=== PATIENT | female | born 1995 | race African-American/Black ===

== ENCOUNTER 2018-12-07 14:23 | Inpatient (IN) ==
[2018-12-07] MEDS ORDERED: LACTATED RINGER'S 1,000 ML IV PRN ×3 (14:49→23:38)
[2018-12-07] MEDS ORDERED: miSOPROStol 50 MCG TAB PO ONE (14:49)
[2018-12-07] MEDS ORDERED: OXYTOCIN 30 UNITS/500 ML BAG IV PRN ×2 (14:49→23:00)
--- NOTE | 2018-12-07 14:52 | History & Physical Report ---
Date of Service December 07, 2018 40 weeks and 0 days patient noted leakage of fluid starting early this morning just after midnight she has minimal contraction activity at this time minimal pain she has no bleeding states her baby is active has been uncomplicated. Group B strep negative Assessment & Plan (1) PROM (premature rupture of membranes): PROM at term group B strep negative admit discussed augmentation induction of labor offered Cytotec discussed the role of Pitocin patient prefers Cytotec at this time History of Present Illness Primary Care Provider: NO PCP Physical Exam 2 Vital Signs (Past 24 Hours): Last Vital Signs Temp 36.4 C L 12/07/18 14:31 Pulse 78 12/07/18 14:31 Resp 20 12/07/18 14:31 BP 123/90 12/07/18 14:31 Physical Exam: Patient appears in no distress Chest clear Cardiovascular no murmur regular rate and rhythm Abdominal exam gravid Sterile speculum exam reveals no pooling nitrazine negative however ferning is positive and and amnisure positive cervix is long thick and closed
[2018-12-07 15:21] LABS: Hematocrit (blood only) 35.1 % (37-47); Hemoglobin 11.2 g/dL (12.0-16.0); Mean Corpuscular Hgb Conc 31.9 g/dL (32-36); Mean Corpuscular Volume 78.3 fL (80-100); RDW Coefficient of Variation 14.1 % (11.5-14.5); RDW Standard Deviation 39.8 fL (36.4-46.3); Red Blood Count 4.48 M/uL (4.2-5.4); White Blood Count 9.14 K/uL (4.8-10.8)
[2018-12-07 15:30] LABS: Mean Platelet Volume 12.4 fL (7.4-10.4); Platelet Count 129 K/uL (130-400)
--- NOTE | 2018-12-07 21:12 | Obstetrical Progress Note ---
Date of Service December 07, 2018 Responding to cytotec. CTX Q2-3'. More painful (02/27) Cat 1. A+P: Will not repeat cytotec dose, may need pitocin. Physical Exam 2 Vital Signs (Past 24 Hours): Last Vital Signs Temp 36.8 C 12/07/18 21:00 Pulse 64 12/07/18 18:57 Resp 20 12/07/18 21:00 BP 124/89 12/07/18 18:57
[2018-12-07] MEDS: LACTATED RINGER'S 1,000 ML IV SCH (23:07)
[2018-12-07] MEDS ORDERED: BUPIVACAINE 0.25% 30 ML VIAL ONE (23:27)
[2018-12-07] MEDS ORDERED: ePHEDrine sulfate 50 MG/ML AMP ONE (23:28)
[2018-12-07] MEDS ORDERED: fentaNYL citrate 100 MCG/2 ML VIAL ONE (23:28)
[2018-12-07] MEDS ORDERED: fentaNYL 2MCG/ML ROPIV 1.25MG/ML 100 ML BAG EPI ONE (23:29)
[2018-12-07] MEDS ORDERED: fentaNYL 2MCG/ML ROPIV 1.25MG/ML 100 ML BAG EPI PRN (23:38)
[2018-12-07] MEDS ORDERED: ePHEDrine sulfate 50 MG/ML AMP IV PRN (23:38)
[2018-12-07] MEDS ORDERED: DiphenhydrAMINE HCL 50 MG/ML VIAL IV PRN (23:38)
[2018-12-07] MEDS ORDERED: NALOXONE HCL 0.4 MG/1 ML VIAL/CARP IV PRN (23:38)
[2018-12-07] MEDS ORDERED: NALBUPHINE HCL INJ 10 MG/ML AMP IV PRN (23:38)
[2018-12-07] MEDS ORDERED: NALOXONE HCL 1 MG in SODIUM CHLORIDE 0.9% 1000ML 1,000 ML IV PRN (23:38)
--- NOTE | 2018-12-07 23:40 | Anesthesiology Consultation ---
Date of Service December 07, 2018 Assessment & Plan (1) Encounter for pre-operative examination: Chart Review Chart Review: Patient NOT seen in Pre Admission Testing and Acceptable Risk for Labor Epidural Consults Requested none History Height/Weight Height: 5 ft 5 in Weight: 72.121 kg Allergies Allergy/AdvReac Type Severity Reaction Status Date / Time No Known Allergies Allergy Verified 12/07/18 16:06 Medications Home Medications Medication Instructions Recorded Confirmed Last Taken vit-iron fum-folic ac 1 tab PO DAILY 12/07/18 12/07/18 12/06/18 20:00 [ Vitamin] Active Medications Generic Name Dose Route Start Last Admin Trade Name Freq PRN Reason Stop Dose Admin Lactated Ringer's 1,000 mls @ 125 mls/hr 12/07/18 15:00 12/07/18 23:07 Lr IV 12/09/18 14:59 999 mls/hr .Q8H [facility]US[facility]OO Administration Past Medical History Medical History No known health problems Past Family History Family History Other No history of previous surgery No known health problems Past Anesthesia History No Hx of Anesthesia Complications and No Family Hx of Anesthesia Complications History of PONV No Motion Sickness Screening History of Motion Sickness: No Social History Smoking Status: Never smoker Hx Alcohol Use: No Hx Substance Use: No substance use type: does not use Exercise / Class Metabolic Activity II 4-5 Yardwork/Stairs/Walk up hill Physical Exam Vital Signs Last Vital Signs Temp 37.1 C 12/07/18 23:00 Pulse 69 12/07/18 23:32 Resp 20 12/07/18 23:00 BP 108/74 12/07/18 23:09 Pulse Ox 100 12/07/18 23:32 Testing Laboratory Results 12/07/18 15:01
[2018-12-08] MEDS: LACTATED RINGER'S 1,000 ML IV SCH ×3 (00:08→12:53)
--- NOTE | 2018-12-08 06:24 | Obstetrical Progress Note ---
Date of Service December 08, 2018 Patient has now progressed to 4 cm 90% -2 small for bag of esteves ruptured spontaneously on exam Pitocin is running and has been running for most of the evening occasional variable decelerations otherwise good accelerations good variability in the heart rate Physical Exam 2 Vital Signs (Past 24 Hours): Last Vital Signs Temp 37.2 C 12/08/18 05:00 Pulse 79 12/08/18 06:17 Resp 18 12/08/18 05:00 BP 114/80 12/08/18 06:10 Pulse Ox 100 12/08/18 06:17
--- NOTE | 2018-12-08 06:52 | Obstetrical Progress Note ---
Date of Service December 08, 2018 After membranes ruptured on exam patient did have a prolonged D cell. We did stop the Pitocin and heart rate improved in semi-batista's position scalp clip was placed patient almost stretches to 5 cm -1 station We will have to follow closely as she is on oxygen and Pitocin stopped and consider restarting Pitocin heart rate tracing stays stable Physical Exam 2 Vital Signs (Past 24 Hours): Last Vital Signs Temp 37.2 C 12/08/18 05:00 Pulse 77 12/08/18 06:47 Resp 18 12/08/18 05:00 BP 124/58 L 12/08/18 06:41 Pulse Ox 100 12/08/18 06:47
--- NOTE | 2018-12-08 07:50 | Obstetrical Progress Note ---
Date of Service December 08, 2018 Assessment & Plan (1) PROM (premature rupture of membranes): Pitocin off for 30 minutes. Tracing category 2 with good variability and accelerations. Occasional decelerations with contraction. Contractions every 7 -9 minutes. We will reinitiate Pitocin to augment labor. Continue external monitoring. Subjective Change of shift note: The patient is a 23-year-old 1 para 0 admitted with presumed rupture of membranes. Patient initially induced with Cytotec, became uncomfortable, an epidural was placed. Pitocin was then initiated. Patient had a prolonged deceleration causing the Pitocin to be discontinued. Intrauterine pressure catheter was then placed. Change of shift with new provider assuming care at this point. Physical Exam 2 Vital Signs (Past 24 Hours): Last Vital Signs Temp 37.1 C 12/08/18 07:15 Pulse 69 12/08/18 07:42 Resp 20 12/08/18 07:15 BP 109/76 12/08/18 07:26 Pulse Ox 100 12/08/18 07:42
--- NOTE | 2018-12-08 12:43 | Obstetrical Progress Note ---
Date of Service December 08, 2018 Assessment & Plan (1) PROM (premature rupture of membranes): Patient continues on Pitocin with adequate labor for the last 4 hours. No cervical change and repetitive decelerations with decreased variability with contractions. Overall the tracing is still category 2 but at times approaches category 3. With no cervical change despite the adequate contractions, we are remote from delivery. Do not feel that the fetus will tolerate long-term continued Pitocin and recommend proceeding with primary section for intolerance to labor. All questions answered of the patient in the FOB. The risks, benefits, and alternatives to the section have been discussed. While the benefits are delivery of the infant, the risks of bleeding , infection, inadvertent injury to bowel or bladder, readmission, or rehospitalization. All questions answered of the patient. The permit has been signed, and she wishes to proceed. Physical Exam 2 Vital Signs (Past 24 Hours): Last Vital Signs Temp 37.0 C 12/08/18 10:55 Pulse 71 12/08/18 12:37 Resp 20 12/08/18 11:25 BP 120/74 12/08/18 12:25 Pulse Ox 100 12/08/18 12:37 Genitourinary: Manual OB Exam: + cervical dilation 4 cm, + cervical effacement 70% and + station -2 OB Exam Monitor Tracing: + external FHT monitor used, + category II and + category III
[2018-12-08] MEDS ORDERED: LIDOCAINE/EPINEPHRINE 2% 1:200,000 20 ML SDV ONE (12:44)
[2018-12-08] MEDS ORDERED: CEFAZOLIN 2000MG 2,000 MG/15 ML SYR IV STA (12:44)
[2018-12-08] MEDS ORDERED: OXYTOCIN 10 UNITS/ML VIAL ONE (12:44)
[2018-12-08] MEDS ORDERED: LACTATED RINGER'S 1,000 ML IV SCH ×3 (12:45→14:22)
[2018-12-08] MEDS ORDERED: CITRIC ACID/SODIUM CITRATE 15 ML UDC ONE (12:48)
[2018-12-08] MEDS ORDERED: MoRPHine SULFATE PF 1 MG/ML 10 ML AMP/VIAL ONE (13:16)
[2018-12-08] MEDS ORDERED: MoRPHine SULFATE PF 1 MG/ML 10 ML AMP/VIAL INT SPINAL ONE (13:37)
[2018-12-08] MEDS ORDERED: LACTATED RINGER'S 500 ML IV PRN (13:37)
[2018-12-08] MEDS ORDERED: NALOXONE HCL 1 MG in SODIUM CHLORIDE 0.9% 1000ML 1,000 ML IV PRN (13:37)
[2018-12-08] MEDS ORDERED: DiphenhydrAMINE HCL 50 MG/ML VIAL IV PRN (13:37)
[2018-12-08] MEDS ORDERED: NALOXONE HCL 0.08 MG in SYRINGE 1.8 ML IV PRN (13:37)
[2018-12-08] MEDS ORDERED: NALOXONE HCL 0.4 MG/1 ML VIAL/CARP IV PRN (13:37)
[2018-12-08] MEDS ORDERED: ONDANSETRON INJ 2 MG/ML 2 ML VIAL IV PRN (13:37)
[2018-12-08] MEDS ORDERED: ePHEDrine sulfate 50 MG/ML AMP IV PRN (13:37)
[2018-12-08] MEDS ORDERED: MEPERIDINE HCL 25 MG/ML CARP IV PRN (13:37)
[2018-12-08] MEDS ORDERED: NALBUPHINE HCL INJ 10 MG/ML AMP IV PRN (13:37)
[2018-12-08] MEDS ORDERED: ONDANSETRON INJ 2 MG/ML 2 ML VIAL ONE (13:38)
[2018-12-08] MEDS ORDERED: SODIUM CHLORIDE 0.9% 1000ML 1,000 ML IV SCH (13:45)
[2018-12-08] MEDS ORDERED: NO NARCOTICS OR SEDATIVES SCH (13:45)
[2018-12-08] MEDS ORDERED: DC INTRASPINAL MORPHINE SCH (13:45)
--- NOTE | 2018-12-08 13:55 | Post Operative Brief Note ---
Immediate Post Op Note v1 Date of Surgery December 08, 2018 Pre & Post Diagnosis Operation Date: 12/08/18 13:00 Pre-Op Diagnosis: 1. intolerance to labor. Post-Op Diagnosis: Same Procedure Operation Date: 12/08/18 13:00 <No data on this case meets the specified criteria> Surgeon Donte Thomas Jr, MD, FACOG Metal Control Coordinator Nursing Estimated Blood Loss 800 Findings See Below (Viable male, APgars 9/9; weight 7lbs 6ozs, gasses pending, normal appearing tubes and ovaries bilaterally)
[2018-12-08 14:21] LABS: Base Excess Cord Venous Blood -0.5 mEq/L (-7.7-1.9); Cord Venous Blood HCO3 25 mmol/L (18.4-26.8); Cord Venous Blood PCO2 45 mmHg (30.4-57.2); Cord Venous Blood PO2 32 mmHg (14.1-43.3); Cord Venous Blood pH 7.37 (7.20-7.44); O2 Saturation Cord Venous Bld 73.2 % (<68)
[2018-12-08] MEDS ORDERED: DIPHTHERIA/TETANUS/PERTUSSIS 0.5 ML SYR/VIAL IM ONE (14:22)
[2018-12-08] MEDS ORDERED: SUPERCREAM 0.870% 15 GM JAR EXT PRN (14:22)
[2018-12-08] MEDS ORDERED: HYDROCORTISONE ACETATE 25 MG SUPP PR PRN (14:22)
[2018-12-08] MEDS ORDERED: BENZOCAINE 20% AER SPR 82.5 GM CAN EXT PRN (14:22)
[2018-12-08 14:24] LABS: Base Excess Cord Arterial Bld -0.3 mEq/L (-9-1.8); CO2 Cord Arterial Blood 59 mmHg (39.1-73.5); HCO3 Cord Arterial Blood 28 mmol/L (19.7-28.5); PO2 Cord Arterial Blood 20.2 % (4.1-31.7); pH Cord Arterial Blood 7.29 (7.1-7.38)
[2018-12-08] MEDS: KETOROLAC 30 MG/ML VIAL IV PRN (14:33)
[2018-12-08] MEDS ORDERED: CARBOPROST TROMETHAMINE 250 MCG/ML AMPUL IM ONE (15:10)
--- NOTE | 2018-12-08 15:27 | Anesthesiology Progress Note ---
Date of Service December 08, 2018 Anesthesia Post Procedure Vital Signs Vital Signs: Temp Pulse Resp BP Pulse Ox 12/08/18 15:23 78 137/64 12/08/18 15:21 75 99 12/08/18 15:16 74 100 12/08/18 15:14 74 92 12/08/18 15:13 83 136/88 12/08/18 15:11 77 99 12/08/18 15:06 72 100 12/08/18 15:03 77 134/86 12/08/18 15:01 74 100 12/08/18 14:56 76 100 12/08/18 14:53 76 132/88 12/08/18 14:51 74 18 100 12/08/18 14:50 79 93 12/08/18 14:46 74 99 12/08/18 14:43 69 130/84 12/08/18 14:41 76 97 12/08/18 14:36 72 140/75 98 12/08/18 14:31 84 100 12/08/18 14:26 79 100 12/08/18 14:23 81 128/83 12/08/18 14:21 75 18 100 12/08/18 14:16 80 124/77 100 12/08/18 14:11 86 97 12/08/18 14:06 87 100 12/08/18 14:01 91 H 122/90 99 12/08/18 13:03 85 126/91 12/08/18 13:02 93 H 99 12/08/18 12:57 90 99 12/08/18 12:55 88 131/92 12/08/18 12:52 80 100 12/08/18 12:47 81 100 12/08/18 12:42 86 99 12/08/18 12:41 70 128/84 12/08/18 12:37 71 100 12/08/18 12:32 76 97 12/08/18 12:27 73 100 12/08/18 12:25 74 120/74 12/08/18 12:22 60 100 12/08/18 12:17 61 100 12/08/18 12:12 68 124/69 100 12/08/18 12:07 72 98 12/08/18 12:02 74 100 12/08/18 11:57 63 99 12/08/18 11:56 76 105/69 12/08/18 11:52 71 100 12/08/18 11:47 74 98 12/08/18 11:42 77 99 12/08/18 11:41 75 113/80 12/08/18 11:37 73 99 12/08/18 11:32 70 99 12/08/18 11:27 80 99 12/08/18 11:26 81 102/58 L 12/08/18 11:25 20 12/08/18 11:22 71 99 12/08/18 11:17 88 99 12/08/18 11:12 71 118/77 100 12/08/18 11:07 76 99 12/08/18 11:02 92 H 98 12/08/18 11:01 73 90 12/08/18 10:57 70 99 12/08/18 10:56 62 141/78 H 12/08/18 10:55 98.6 F 68 20 94 12/08/18 10:52 62 100 12/08/18 10:47 59 L 99 12/08/18 10:43 59 L 130/84 12/08/18 10:42 64 18 99 12/08/18 10:37 59 L 99 12/08/18 10:32 59 L 99 12/08/18 10:27 83 100 12/08/18 10:25 69 109/76 12/08/18 10:22 67 99 12/08/18 10:17 83 97 12/08/18 10:12 66 99 12/08/18 10:10 64 108/69 12/08/18 10:09 20 12/08/18 10:07 63 100 12/08/18 10:02 67 100 12/08/18 09:57 63 100 12/08/18 09:56 60 110/70 12/08/18 09:52 61 100 12/08/18 09:47 59 L 100 19 09:42 57 L 100 19 09:41 56 L 129/89 18 09:37 54 L 100 12/08/18 09:32 62 100 18/19 09:27 62 99 12/08/18 09:25 60 115/79 18/ 09:22 62 100 12/08/18 09:17 64 100 12/08/18 09:12 58 L 100 12/08/18 09:10 57 L 116/80 12/08/18 09:09 97.7 F 18 12/08/18 09:07 68 100 12/08/18 09:02 67 100 12/08/18 08:57 60 99 12/08/18 08:56 67 121/84 12/08/18 08:52 73 100 12/08/18 08:47 58 L 100 12/08/18 08:42 58 L 100 12/08/18 08:41 20 12/08/18 08:37 60 100 12/08/18 08:32 61 100 12/08/18 08:27 63 100 12/08/18 08:26 62 125/78 12/08/18 08:22 67 100 12/08/18 08:17 85 100 12/08/18 08:12 58 L 100 12/08/18 08:11 60 121/73 12/08/18 08:10 16 12/08/18 08:07 63 100 12/08/18 08:02 61 100 12/08/18 07:57 59 L 100 12/08/18 07:56 57 L 111/56 L 12/08/18 07:55 14 12/08/18 07:52 58 L 100 12/08/18 07:47 70 100 12/08/18 07:42 69 100 12/08/18 07:37 68 100 12/08/18 07:32 65 100 12/08/18 07:27 63 100 12/08/18 07:26 65 109/76 12/08/18 07:22 69 100 12/08/18 07:17 65 100 12/08/18 07:15 98.8 F 20 12/08/18 07:12 127/76 12/08/18 07:07 76 98 12/08/18 07:02 64 100 12/08/18 06:57 77 100 12/08/18 06:56 75 94/63 L 12/08/18 06:52 87 100 12/08/18 06:47 77 100 12/08/18 06:42 69 100 19 06:41 81 124/58 L 12/08/18 06:37 66 100 12/08/18 06:32 80 100 12/08/18 06:27 82 98 12/08/18 06:26 106 H 116/80 12/08/18 06:22 72 100 12/08/18 06:17 79 100 12/08/18 06:12 79 100 12/08/18 06:10 90 114/80 12/08/18 06:07 87 99 12/08/18 06:02 71 99 12/08/18 05:57 86 115/79 99 12/08/18 05:52 89 99 12/08/18 05:47 81 98 12/08/18 05:42 73 98 12/08/18 05:40 85 109/72 12/08/18 05:37 75 99 12/08/18 05:32 86 96 12/08/18 05:27 71 98 12/08/18 05:25 81 121/79 12/08/18 05:22 79 99 12/08/18 05:17 81 98 12/08/18 05:12 88 118/76 99 12/08/18 05:07 82 98 12/08/18 05:02 72 99 12/08/18 05:00 99.0 F 18 12/08/18 04:57 72 100 12/08/18 04:56 63 106/64 12/08/18 04:52 74 100 12/08/18 04:47 60 98 12/08/18 04:42 61 100 12/08/18 04:41 71 116/77 12/08/18 04:37 63 99 12/08/18 04:32 97 H 100 12/08/18 04:27 74 100 12/08/18 04:26 63 115/78 12/08/18 04:22 62 98 12/08/18 04:17 69 98 12/08/18 04:12 60 98 12/08/18 04:11 58 L 111/68 12/08/18 04:07 58 L 97 12/08/18 04:02 59 L 97 12/08/18 03:57 67 97 12/08/18 03:56 56 L 113/72 12/08/18 03:52 64 98 12/08/18 03:47 60 99 12/08/18 03:42 56 L 99 12/08/18 03:40 58 L 110/70 12/08/18 03:37 59 L 98 12/08/18 03:32 60 97 12/08/18 03:27 60 98 12/08/18 03:26 58 L 107/71 02/18/19 03:22 55 L 98 12/08/18 03:17 60 98 12/08/18 03:12 55 L 100 12/08/18 03:10 55 L 120/77 12/08/18 03:07 66 99 12/08/18 03:02 57 L 99 12/08/18 03:00 98.8 F 18 12/08/18 02:57 55 L 99 12/08/18 02:56 56 L 114/69 12/08/18 02:52 57 L 98 12/08/18 02:47 57 L 98 12/08/18 02:42 60 100 12/08/18 02:41 58 L 117/80 12/08/18 02:37 60 100 12/08/18 02:32 57 L 18 99 12/08/18 02:27 61 100 12/08/18 02:26 54 L 118/78 12/08/18 02:22 53 L 100 12/08/18 02:17 56 L 99 12/08/18 02:12 55 L 127/83 100 12/08/18 02:09 73 93 12/08/18 02:07 66 99 12/08/18 02:02 57 L 100 12/08/18 02:00 18 12/08/18 01:57 58 L 100 12/08/18 01:56 57 L 126/85 12/08/18 01:52 59 L 99 12/08/18 01:47 56 L 100 12/08/18 01:42 62 98 12/08/18 01:40 57 L 108/69 12/08/18 01:37 69 99 12/08/18 01:32 67 98 12/08/18 01:30 18 12/08/18 01:27 57 L 98 12/08/18 01:26 62 113/70 12/08/18 01:22 61 98 12/08/18 01:17 61 97 12/08/18 01:12 63 97 12/08/18 01:11 64 18 104/62 12/08/18 01:10 98.8 F 12/08/18 01:07 63 97 12/08/18 01:02 56 L 98 12/08/18 00:57 57 L 99 12/08/18 00:52 56 L 98 02/18/19 00:47 55 L 97 12/08/18 00:42 58 L 98 12/08/18 00:41 55 L 18 115/75 12/08/18 00:37 61 98 12/08/18 00:32 62 98 12/08/18 00:27 80 98 12/08/18 00:25 74 20 110/70 12/08/18 00:22 83 99 12/08/18 00:17 65 97 12/08/18 00:15 67 102/61 12/08/18 00:12 73 98 12/08/18 00:09 74 110/66 12/08/18 00:07 71 98 12/08/18 00:04 67 107/64 12/08/18 00:02 69 99 12/08/18 00:01 67 107/62 12/07/18 23:57 75 99 12/07/18 23:55 73 129/70 12/07/18 23:52 64 100 12/07/18 23:47 80 91 12/07/18 23:46 79 126/95 12/07/18 23:43 79 90 12/07/18 23:42 83 100 12/07/18 23:37 64 100 12/07/18 23:32 69 100 12/07/18 23:27 66 98 12/07/18 23:23 73 94 12/07/18 23:22 77 97 12/07/18 23:17 69 98 12/07/18 23:09 71 108/74 12/07/18 23:00 98.8 F 20 12/07/18 21:00 98.2 F 20 12/07/18 19:00 97.7 F 20 12/07/18 18:57 64 124/89 12/07/18 17:05 98.4 F 20 12/07/18 15:37 97.5 F L 18 Pain Intensity Right Abdomen: Pain Intensity: 3 Notes Mental Status: alert / awake / arousable and participated in evaluation Nausea / Vomiting: adequately controlled Pain: adequately controlled Airway Patency, RR, SpO2: stable & adequate BP & HR: stable & adequate Hydration State: stable & adequate Neuraxial Anesthesia: was administered and sensory block is resolving Anesthetic Complications: no major complications apparent and Pt Satisfied with anesthetic care
[2018-12-08] MEDS: OXYTOCIN 20 UNITS in LACTATED RINGER'S 1,000 ML IV SCH (16:00)
--- NOTE | 2018-12-08 22:42 | Operative Report ---
DATE OF OPERATION: 12/08/2018 PREOPERATIVE DIAGNOSES: 1. Term . 2. Premature rupture of membranes. 3. intolerance to labor. POSTOPERATIVE DIAGNOSES: 1. Term . 2. Premature rupture of membranes. 3. intolerance to labor. PROCEDURE PERFORMED: Primary low cervical transverse section. SURGEON: Dr. Thomas. ANESTHESIA: Epidural. FINDINGS: Viable male infant with Apgars of 9 and 9 and weight of 7 pounds 6 ounces. Arterial and venous cord gases are pending. Normal appearing tubes and ovaries bilaterally. PROCEDURE IN DETAIL: The patient was taken to the operating room and after dosing of her epidural anesthesia, she was placed in supine position, draped and prepped in the usual fashion. Pfannenstiel type incision was made. Underlying subcutaneous tissue was dissected down to the ventral abdominal fascia, which was nicked and opened in a horizontal manner. Preperitoneal fascia was dissected away until the peritoneal cavity was entered and opened in a vertical manner. Bladder blade was placed. Peritoneum overlying the uterus was elevated, opened in a semi-lunar fashion, the inferior margin of which was taken down creating the bladder flap. Uterus was entered sharply and extended in a semilunar fashion manually. Viable male infant was delivered. Cord was clamped and cut and the baby was passed off to Pediatrics who was in attendance for the delivery. Cord gases and cord blood samples were obtained. Placenta was delivered spontaneously and sent for pathological evaluation. The uterus was exteriorized and wiped clean of any residual blood tissue and/or clot. The uterine incision was closed with 2 layers of 4-0 Vicryl, the first a running locking stitch, the second an imbricating stitch. Hemostasis achieved in the uterus, which was returned to the pelvic cavity. Pericolic gutters were cleared bilaterally of any blood tissue and/or clot. Uterus was inspected again for hemostasis, which was present. Sponge and needle count was correct. The rectus muscles were plicated in the midline with a running 2-0 Vicryl stitch. The fascia was closed laterally with a running 0 Vicryl suture. Subcutaneous tissue was irrigated with warm saline and the skin incision was closed with a 4-0 Monocryl subcuticular suture. Sterile dressing was applied. The patient was taken to the recovery room in satisfactory condition. I attest to the content of the Intraoperative Record and any orders documented therein. Any exception s are noted below.
[2018-12-09] MEDS: OXYTOCIN 20 UNITS in LACTATED RINGER'S 1,000 ML IV SCH (00:16)
[2018-12-09] MEDS: KETOROLAC 30 MG/ML VIAL IV PRN ×2 (01:14→06:44)
[2018-12-09] MEDS ORDERED: CITRIC ACID/SODIUM CITRATE 15 ML UDC PO SCH (06:00)
--- NOTE | 2018-12-09 06:32 | Obstetrical Progress Note ---
Date of Service <Ariane Kong MD - Last Filed: 12/09/18 07:09> December 09, 2018 Assessment & Plan <Ariane Kong MD - Last Filed: 12/09/18 07:09> (1) Delivery by section of full-term infant: 23yo at 40.0 weeks with due to intolerance of labor. Post-op Day 1 -Routine care: -ambulation as tolerated -Diet advanced with hydration -Gonsalves removal -Pain control Subjective <Ariane Kong MD - Last Filed: 12/09/18 07:09> Ambulation: limited ambulation (Has been sitting up in bed, swinging legs over side) Voiding: gonsalves catheter in place Passing Gas:: Yes Diet Tolerance:: regular diet Lochia:: Moderate Feeding Type:: breast feeding Current Pain Level(1-10): 2 Eyes: no problem reported Respiratory: no dyspnea Cardiovascular: + edema; no chest pain, no palpitations and no calf pain Gastrointestinal: no nausea and no vomiting Neurologic: no headache(s) Physical Exam <Ariane Kong MD - Last Filed: 12/09/18 07:09> Vital Signs (Past 24 Hours) Last Vital Signs Temp 37 C 12/09/18 03:30 Pulse 83 12/09/18 03:30 Resp 18 12/09/18 06:10 BP 100/57 L 12/09/18 03:30 Pulse Ox 98 12/09/18 06:10 Respiratory normal respiratory effort, lungs clear to auscultation Cardiovascular RRR, no murmur, no edema Gastrointestinal (Abdomen) Inspection/Auscultation: + abdominal surgical incision (covered with bandages, nonbloody.) Results & Data <Ariane Kong MD - Last Filed: 12/09/18 07:09> Laboratory Results Laboratory Results - last 24 hr 12/07/18 12/08/18 12/08/18 15:01 13:30 13:30 Cord ABG pH 7.29 Cord ABG pCO2 59 Cord ABG pO2 20.2 Cord ABG HCO3 28 Cord ABG Base Excess -0.3 Cord ABG O2 Sat < 60.0 Cord VBG pH 7.37 Cord VBG pCO2 45 Cord VBG pO2 32 Cord VBG HCO3 25 Cord VBG Base Excess -0.5 Cord VBG O2 Sat 73.2 H Barometric Pressure 732.8 732.8 Blood Gas Comments PRIDE PRIDE Blood Type O Positive Antibody Screen NEGATIVE Medications Administered Home Medications vit-iron fum-folic ac [ Vitamin] 1 tab PO DAILY 12/07/18 [ History Confirmed 12/07/18] Active Medications Benzocaine (Dermoplast Pain Relieving [place]) 1 appln EXT UD PRN PRN Reason: use on skin as needed Stop: 01/07/19 14:21 Cocaine HCl (Supercream 0.870%) 1 gm EXT UD PRN PRN Reason: hemmorrhoidal inflammation Stop: 12/22/18 14:21 Diphenhydramine HCl (Benadryl) 25 mg IV Q6H PRN PRN Reason: pruritis Stop: 12/09/18 07:37 Diphenhydramine HCl (Benadryl) 25 mg IV QID PRN PRN Reason: Itching Stop: 01/08/19 07:39 Diphenhydramine HCl (Benadryl Capsule) 25 mg PO QID PRN PRN Reason: Itching Stop: 01/08/19 07:39 Ephedrine Sulfate (Ephedrine Sulfate) 10 mg IV Q5M PRN PRN Reason: Hypotension Stop: 12/09/18 07:37 Ferrous Sulfate (Feosol) 325 mg PO QAM [facility] Stop: 01/08/19 08:59 Hydrocortisone (Anusol Hc) 25 mg NC BID PRN PRN Reason: Hemorrhoids Stop: 01/07/19 14:21 Lactated Ringer's (Lr) 500 mls @ 999 mls/hr IV .Q31M PRN PRN Reason: Hypotension Stop: 12/09/18 07:37 Naloxone HCl 1 mg/ Sodium (Chloride) 1,002.5 mls @ 50 mls/hr IV .Q20H3M PRN PRN Reason: itching or nausea Stop: 12/09/18 07:37 Naloxone HCl 0.08 mg/ Syringe 2 mls @ 1 mls/min IV Q30M PRN; Protocol PRN Reason: Urinary Retention Stop: 12/09/18 07:37 Sodium Chloride (Nss 1000ml) 1,000 mls @ 15 mls/hr IV .Q24H [facility]US[facility]OO Stop: 12/09/18 07:37 Lactated Ringer's (Lr) 1,000 mls @ 125 mls/hr IV .Q8H [facility] Stop: 01/07/19 14:21 Ibuprofen (Motrin) 600 mg PO Q4H PRN PRN Reason: Pain Stop: 01/07/19 14:21 Ketorolac Tromethamine (Toradol) 30 mg IV Q6H PRN PRN Reason: Breakthrough Surgical Pain Stop: 12/09/18 07:38 Last Admin: 12/09/18 01:14 Dose: 30 mg Ketorolac Tromethamine (Toradol) 30 mg IV Q6H PRN PRN Reason: Pain Stop: 12/14/18 07:59 Magnesium Hydroxide (Milk Of Magnesia) 30 ml PO HS [facility] Stop: 01/08/19 20:59 Meperidine HCl (Demerol) 25 mg IV Q15M PRN PRN Reason: Breakthrough Surgical Pain Stop: 12/09/18 07:38 Last Admin: 12/08/18 15:12 Dose: 25 mg Miscellaneous (No Narcotics Or Sedatives) 1 ea N/A UD [facility] Stop: 12/09/18 07:37 Miscellaneous Information (Dc Intraspinal Morphine) 1 ea N/A UD [facility] Stop: 12/09/18 07:37 Nalbuphine HCl (Nubain) 5 mg IV Q10M PRN PRN Reason: itching or nausea Stop: 12/09/18 07:37 Naloxone HCl (Narcan) 0.1 mg IV UD PRN PRN Reason: Respiratory Depression Stop: 12/09/18 07:37 Ondansetron HCl (Zofran) 4 mg IV Q6H PRN PRN Reason: Nausea And Vomiting Stop: 12/09/18 07:38 Ondansetron HCl (Zofran) 4 mg IV Q4H PRN PRN Reason: Nausea And Vomiting Stop: 01/08/19 07:39 Oxycodone/Acetaminophen (Percocet 5mg/325mg) 1 - 2 tab PO Q4H PRN PRN Reason: Pain Stop: 12/23/18 07:39 Prenat Multivit/Margarine Maker/Iron/Folic Ac ( Vitamin) 1 tab PO QAM [facility] Stop: 01/08/19 08:59 Sennosides (Senokot) 17.2 mg PO HS [facility] Stop: 01/08/19 20:59 <Donte Thomas Jr, MD, FACOG - Last Filed: 12/09/18 07:27> Co-Signing Physician Notes Resident Physician Supervision Note: I was present with Dr. Knog during the history and exam. I discussed the case with the resident and agree with the findings and plan as documented in the note. Any exceptions or clarifications are listed here: Dressing removed from incision, incision clean/dry /intact. Discussed surgery/delivery with liliana. All questions answered. Documented By: Donte Thomas Jr, MD, FACOG
[2018-12-09] MEDS ORDERED: DiphenhydrAMINE HCL 50 MG/ML VIAL IV PRN (07:40)
[2018-12-09] MEDS ORDERED: ONDANSETRON INJ 2 MG/ML 2 ML VIAL IV PRN (07:40)
[2018-12-09] MEDS ORDERED: KETOROLAC 30 MG/ML VIAL IV PRN (08:00)
[2018-12-09 08:19] LABS: Basophils # (auto) 0.01 K/uL (0-0.2); Basophils % (auto) 0.1 %; Eosinophils # (auto) 0.03 K/uL (0-0.5); Eosinophils % (auto) 0.2 %; Hematocrit (blood only) 28.5 % (37-47); Hemoglobin 9.1 g/dL (12.0-16.0); Immature Granulocytes # (auto) 0.04 K/uL (0.00-0.02); Immature Granulocytes % (auto) 0.3 %; Lymphocytes # (auto) 1.74 K/uL (1.2-3.4); Lymphocytes % (auto) 12.3 %; Mean Corpuscular Hgb Conc 31.9 g/dL (32-36); Mean Corpuscular Volume 77.4 fL (80-100); Mean Platelet Volume 11.6 fL (7.4-10.4); Monocytes # (auto) 1.28 K/uL (0.11-0.59); Neutrophils # (auto) 11.07 K/uL (1.4-6.5); Neutrophils % (auto) 78.1 %; Platelet Count 117 K/uL (130-400); Red Blood Count 3.68 M/uL (4.2-5.4); White Blood Count 14.17 K/uL (4.8-10.8)
[2018-12-09] MEDS: PRENATAL VITAMIN 1 TAB PO SCH (08:40)
[2018-12-09] MEDS: FERROUS SULFATE 325 MG TAB PO SCH (08:40)
[2018-12-09] MEDS: OXYCODONE/ACETAMINOPHEN 5mg/325mg TAB PO PRN ×2 (11:14→20:18)
[2018-12-09] MEDS: IBUPROFEN 600 MG TAB PO PRN ×2 (11:14→20:18)
[2018-12-09] MEDS: MAGNESIUM HYDROXIDE SUSP 30 ML UDC PO SCH (20:17)
[2018-12-09] MEDS: SENNA 8.6 MG TAB PO SCH (20:18)
[2018-12-10] MEDS: OXYCODONE/ACETAMINOPHEN 5mg/325mg TAB PO PRN ×5 (04:56→20:30)
[2018-12-10 06:36] LABS: Hematocrit (blood only) 27.2 % (37-47); Hemoglobin 8.6 g/dL (12.0-16.0)
--- NOTE | 2018-12-10 07:04 | Obstetrical Progress Note ---
Date of Service <Ariane Kong MD - Last Filed: 12/10/18 07:07> December 10, 2018 Assessment & Plan <Ariane Kong MD - Last Filed: 12/10/18 07:07> (1) Delivery by section of full-term infant: 23yo at 40.0 weeks with due to intolerance of labor. Post-op Day 2 -Routine care: -ambulation as tolerated -Diet advanced with hydration -Pain control Subjective <Ariane Kong MD - Last Filed: 12/10/18 07:07> Ambulation: ambulating normally Voiding: no voiding problems Passing Gas:: Yes Diet Tolerance:: regular diet Lochia:: Moderate Feeding Type:: breast feeding Current Pain Level(1-10): 4 Eyes: no problem reported Respiratory: no dyspnea Cardiovascular: no chest pain, no palpitations, no lightheadedness, no edema and no calf pain Gastrointestinal: no nausea and no vomiting Neurologic: no headache(s) Physical Exam <Ariane Kong MD - Last Filed: 12/10/18 07:07> Vital Signs (Past 24 Hours) Last Vital Signs Temp 36.6 C 12/10/18 00:05 Pulse 76 12/10/18 00:05 Resp 18 12/10/18 00:05 BP 108/71 12/10/18 00:05 Pulse Ox 98 12/09/18 16:05 Respiratory normal respiratory effort, lungs clear to auscultation Cardiovascular RRR, no murmur, no edema Gastrointestinal (Abdomen) Inspection/Auscultation: + abdominal surgical incision (clean/dry/intact) Genitourinary OB Exam Abdomen: + fundal height Fundus: + firm; not tender and not boggy Results & Data <Ariane Kong MD - Last Filed: 12/10/18 07:07> Laboratory Results Laboratory Results - last 24 hr 12/09/18 12/10/18 08:09 06:08 WBC 14.17 H RBC 3.68 L Hgb 9.1 L 8.6 L Hct 28.5 L 27.2 L MCV 77.4 L MCH 24.7 L MCHC 31.9 L RDW Std Deviation 40.0 RDW Coeff of Omar 14.0 Plt Count 117 L MPV 11.6 H Immature Gran % (Auto) 0.3 Neut % (Auto) 78.1 Lymph % (Auto) 12.3 Pope % (Auto) 9.0 Eos % (Auto) 0.2 Baso % (Auto) 0.1 Immature Gran # (Auto) 0.04 H Neut # (Auto) 11.07 H Lymph # (Auto) 1.74 Pope # (Auto) 1.28 H Eos # (Auto) 0.03 Baso # (Auto) 0.01 Medications Administered Home Medications vit-iron fum-folic ac [ Vitamin] 1 tab PO DAILY 12/07/18 [ History Confirmed 12/07/18] Active Medications Benzocaine (Dermoplast Pain Relieving [place]) 1 appln EXT UD PRN PRN Reason: use on skin as needed Stop: 01/07/19 14:21 Cocaine HCl (Supercream 0.870%) 1 gm EXT UD PRN PRN Reason: hemmorrhoidal inflammation Stop: 12/22/18 14:21 Diphenhydramine HCl (Benadryl) 25 mg IV QID PRN PRN Reason: Itching Stop: 01/08/19 07:39 Diphenhydramine HCl (Benadryl Capsule) 25 mg PO QID PRN PRN Reason: Itching Stop: 01/08/19 07:39 Ferrous Sulfate (Feosol) 325 mg PO QAM KHUSHBOO Stop: 01/08/19 08:59 Last Admin: 12/09/18 08:40 Dose: 325 mg Hydrocortisone (Anusol Hc) 25 mg AR BID PRN PRN Reason: Hemorrhoids Stop: 01/07/19 14:21 Lactated Ringer's (Lr) 1,000 mls @ 125 mls/hr IV .Q8H KHUSHBOO Stop: 01/07/19 14:21 Ibuprofen (Motrin) 600 mg PO Q4H PRN PRN Reason: Pain Stop: 01/07/19 14:21 Last Admin: 12/09/18 20:18 Dose: 600 mg Ketorolac Tromethamine (Toradol) 30 mg IV Q6H PRN PRN Reason: Pain Stop: 12/14/18 07:59 Magnesium Hydroxide (Milk Of Magnesia) 30 ml PO HS KHUSHBOO Stop: 01/08/19 20:59 Last Admin: 12/09/18 20:17 Dose: 30 ml Ondansetron HCl (Zofran) 4 mg IV Q4H PRN PRN Reason: Nausea And Vomiting Stop: 01/08/19 07:39 Oxycodone/Acetaminophen (Percocet 5mg/325mg) 1 - 2 tab PO Q4H PRN PRN Reason: Pain Stop: 12/23/18 07:39 Last Admin: 12/10/18 04:56 Dose: 2 tab Prenat Multivit/Is Consultant/Iron/Folic Ac ( Vitamin) 1 tab PO QAM KHUSHBOO Stop: 01/08/19 08:59 Last Admin: 12/09/18 08:40 Dose: 1 tab Sennosides (Senokot) 17.2 mg PO HS KHUSHBOO Stop: 01/08/19 20:59 Last Admin: 12/09/18 20:18 Dose: 17.2 mg <Aishwarya White, - Last Filed: 12/10/18 07:25> Co-Signing Physician Notes I have seen/examined patient. I have read above note performed by resident and I agree with above. Any changes/additions are as follows: POD#2 doing well. Plan for discharge home tomorrow. Aishwarya White DO [facility]
[2018-12-10] MEDS: IBUPROFEN 600 MG TAB PO PRN ×4 (09:08→20:30)
[2018-12-10] MEDS: FERROUS SULFATE 325 MG TAB PO SCH (09:09)
[2018-12-10] MEDS: PRENATAL VITAMIN 1 TAB PO SCH (09:09)
[2018-12-10] MEDS: SENNA 8.6 MG TAB PO SCH (20:29)
[2018-12-10] MEDS: MAGNESIUM HYDROXIDE SUSP 30 ML UDC PO SCH (20:30)
[2018-12-11] MEDS: IBUPROFEN 600 MG TAB PO PRN ×2 (00:30→06:06)
[2018-12-11] MEDS: OXYCODONE/ACETAMINOPHEN 5mg/325mg TAB PO PRN ×2 (00:31→06:06)
--- NOTE | 2018-12-11 07:51 | Obstetrical Progress Note ---
Date of Service <Ariane Kong MD - Last Filed: 12/11/18 08:04> December 11, 2018 Assessment & Plan <Ariane Kong MD - Last Filed: 12/11/18 08:04> (1) Delivery by section of full-term infant: 23yo at 40.0 weeks with due to intolerance of labor. Post-op Day 3 Discharge today-instructions reviewed Subjective <Ariane Kong MD - Last Filed: 12/11/18 08:04> Ambulation: ambulating normally Voiding: no voiding problems Passing Gas:: Yes Diet Tolerance:: regular diet Lochia:: Moderate Feeding Type:: breast feeding Current Pain Level(1-10): 4 Constitutional: no fever and no chills Respiratory: no dyspnea Cardiovascular: no palpitations, no lightheadedness, no edema and no calf pain Gastrointestinal: + abdominal pain (RLQ); no nausea and no vomiting Genitourinary (female): no dysuria Neurologic: no headache(s) Physical Exam <Ariane Kong MD - Last Filed: 12/11/18 08:04> Vital Signs (Past 24 Hours) Last Vital Signs Temp 36.7 C 12/10/18 23:20 Pulse 76 12/10/18 23:20 Resp 18 12/10/18 23:20 BP 113/73 12/10/18 23:20 Pulse Ox 98 12/10/18 16:15 Respiratory normal respiratory effort, lungs clear to auscultation Cardiovascular RRR, no murmur, no edema Gastrointestinal (Abdomen) Inspection/Auscultation: + abdominal surgical incision (clean/dry/intact) Percussion/Palpation: abdomen nontender (to palpation in RLQ) Genitourinary OB Exam Abdomen: + fundal height Fundus: not tender and not boggy <Deanna Hernadez MD, FACOG - Last Filed: 12/11/18 08:08> Genitourinary OB Exam Abdomen: + fundal height Fundus: not tender and not boggy Results & Data <Ariane Kong MD - Last Filed: 12/11/18 08:04> Medications Administered Home Medications vit-iron fum-folic ac [ Vitamin] 1 tab PO DAILY 02/17/19 [ History Confirmed 12/07/18] breast pump #1 ea 12/10/18 [Rx] Active Medications Benzocaine (Dermoplast Pain Relieving [place]) 1 appln EXT UD PRN PRN Reason: use on skin as needed Stop: 01/07/19 14:21 Cocaine HCl (Supercream 0.870%) 1 gm EXT UD PRN PRN Reason: hemmorrhoidal inflammation Stop: 12/22/18 14:21 Diphenhydramine HCl (Benadryl) 25 mg IV QID PRN PRN Reason: Itching Stop: 01/08/19 07:39 Diphenhydramine HCl (Benadryl Capsule) 25 mg PO QID PRN PRN Reason: Itching Stop: 01/08/19 07:39 Ferrous Sulfate (Feosol) 325 mg PO QAM KHUSHBOO Stop: 01/08/19 08:59 Last Admin: 12/10/18 09:09 Dose: 325 mg Hydrocortisone (Anusol Hc) 25 mg SD BID PRN PRN Reason: Hemorrhoids Stop: 01/07/19 14:21 Lactated Ringer's (Lr) 1,000 mls @ 125 mls/hr IV .Q8H KHUSHBOO Stop: 01/07/19 14:21 Ibuprofen (Motrin) 600 mg PO Q4H PRN PRN Reason: Pain Stop: 01/07/19 14:21 Last Admin: 12/11/18 06:06 Dose: 600 mg Ketorolac Tromethamine (Toradol) 30 mg IV Q6H PRN PRN Reason: Pain Stop: 12/14/18 07:59 Magnesium Hydroxide (Milk Of Magnesia) 30 ml PO HS KHUSHBOO Stop: 01/08/19 20:59 Last Admin: 12/10/18 20:30 Dose: 30 ml Ondansetron HCl (Zofran) 4 mg IV Q4H PRN PRN Reason: Nausea And Vomiting Stop: 01/08/19 07:39 Oxycodone/Acetaminophen (Percocet 5mg/325mg) 1 - 2 tab PO Q4H PRN PRN Reason: Pain Stop: 12/23/18 07:39 Last Admin: 12/11/18 06:06 Dose: 1 tab Prenat Multivit/Remer/Iron/Folic Ac ( Vitamin) 1 tab PO QAM KHUSHBOO Stop: 01/08/19 08:59 Last Admin: 12/10/18 09:09 Dose: 1 tab Sennosides (Senokot) 17.2 mg PO HS KHUSHBOO Stop: 01/08/19 20:59 Last Admin: 12/10/18 20:29 Dose: 17.2 mg <Deanna Hernadez MD, FACOG - Last Filed: 12/11/18 08:08> Co-Signing Physician Notes Resident Physician Supervision Note: I was present with Dr. Kong during the history and exam. I discussed the case with the resident and agree with the findings and plan as documented in the note. Any exceptions or clarifications are listed here: Doing well. Ready for discharge. Lochia actually small. Pain well controlled. Eval on [place] PDMP and no issues. D/c home and instructions reviewed. F/u 2wk incision check with dr. browne. Documented By: Deanna Hernadez MD, FACOG
[2018-12-11] MEDS: PRENATAL VITAMIN 1 TAB PO SCH (08:46)
[2018-12-11] MEDS: FERROUS SULFATE 325 MG TAB PO SCH (08:46)
--- NOTE | 2018-12-12 00:29 | Discharge Summary ---
ADMITTING DIAGNOSES: 1. Term . 2. Premature rupture of membranes. DISCHARGE DIAGNOSES: 1. Term . 2. intolerance to labor. PROCEDURES PERFORMED: Primary low cervical transverse section. DISCHARGE MEDICATIONS: 1. Percocet 5/325 1-2 p.o. q.4-6 hours p.r.n. pain. 2. Motrin 600 mg p.o. q. 6 hours p.r.n. pain. ADMISSION HISTORY: The patient is a 23-year-old 1, para 0 with an EDC of 12/07/2018, who presented to labor and delivery at 40 weeks gestational age with leaking of fluid. The patient states that she had been leaking fluid for approximately at least 12 hours prior to admission. She denied contractions or vaginal bleeding. The patient transferred her obstetrical care to our practice from [place] at 28 weeks gestational age. She had an unremarkable course. Her blood type is O positive, antibody negative, rubella immune, hepatitis B negative. She declined first trimester cell free DNA screening. She had a normal 1-hour Glucola and a negative third trimester beta strep culture. ADMISSION PHYSICAL EXAMINATION: GENERAL: Showed a gravid female in no acute distress. LUNGS: Clear. HEART: With a regular rhythm and rate. ABDOMEN: Gravid, vertex, positive heart tones. PELVIC: Showed normal external genitalia. Vaginal vault was pink and rugated. Sterile speculum examination showed no pooling. Nitrazine was negative; however, the fluid was fern positive and AmniSure was positive consistent with rupture of membranes. Cervix was long, thick, and closed. EXTREMITIES: Showed no deep calf tenderness. NEUROLOGIC: Grossly intact. ADMISSION LABORATORY VALUES: Showed an H and H of 11.2 and 35.1. HOSPITAL COURSE: The patient was felt to be ruptured with unfavorable cervix. She was initially given Cytotec 50 mcg p.o., which induced regular contractions. The patient was uncomfortable. Anesthesia was consulted and an epidural was placed. Following this, contractions were somewhat spaced out and Pitocin was initiated per induction protocol. There was an episode of a deceleration causing the Pitocin to be discontinued. An intrauterine pressure catheter was placed and following 30 minutes of rest, the Pitocin was reinitiated. Delivering physician assumed care for the patient at this point. Pitocin was increased per protocol. The patient began to develop some decelerations with decreased variability with the contractions. After 8 hours of Pitocin, there had been minimal cervical change past 4-5 cm. In addition, the tracing was borderline category III. The patient was felt to be remote from delivery and the long-term health was in question and as such, the patient was taken to the operating room for a primary section for intolerance to labor. The patient delivered a viable male infant with Apgars of 9 and 9, weight is 7 pounds 6 ounces, normal appearing tubes and ovaries bilaterally. Postoperatively, the patient did well. Lentz catheter was removed on the first postoperative day. H and H came back at 9.1 and 28.5. By the 3rd postoperative day, the patient was ambulating without difficulty and tolerating a regular diet. She was discharged home with routine discharge instructions and the prescriptions for the medications as listed as above. She will follow up in the office in 2 weeks' time for a postoperative check but as always she has been instructed to call with any questions, problems, and difficulties.
== END 2018-12-11 14:00 | disposition home or self-care (01) | DRG 788 ==
LOC: OPB 14:23 → 4S1 14:24 → 4S2 12-08 16:50

== ENCOUNTER 2021-06-29 16:09 | Inpatient (IN) ==
--- NOTE | 2021-06-27 14:43 | Anesthesiology Consultation ---
Date of Service June 27, 2021 Assessment & Plan (1) Encounter for pre-operative examination: Chart Review Chart Review: data entry assistant initiated Per nursing assessment 06/27/2021, patient denies any recent travel. No known Covid infection in the past 90 days. Patient is not vaccinated for Covid. No known Covid positive contacts or Covid related symptoms. Preop Covid testing scheduled 06/28/21= will await results 12/08/18= "Pt with functioning epidural, epidural bolused with lido 2% with epi 1:200k 15ml, incrementally dosed. VSS. " History Surgery Operation Date: 06/30/21 07:30 Proposed Procedures p Section in - Marge Quiros MD Height/Weight Height: 5 ft 4 in Weight: 83.915 kg Allergies Allergy/AdvReac Type Severity Reaction Status Date / Time No Known Allergies Allergy Verified 06/27/21 13:58 Medications Home Medications Medication Instructions Recorded Confirmed Last Taken vitamins-iron fumarate 27 1 tab PO DAILY 12/07/18 06/27/21 12/06/18 20:00 mg iron-folic acid 0.8 mg tablet ( Vitamin) ondansetron HCl 4 mg tablet 4 mg PO TID PRN 5 Days #30 tab 11/11/20 06/27/21 Unknown Past Medical History Medical History No known health problems Past Family History Family History Other No history of previous surgery No known health problems Denies family history of Ovarian cancer Breast cancer Colorectal cancer Past Surgical History Surgical History S/P section Social History Smoking Status: Never smoker Do You Dip or Chew Tobacco: No Hx Alcohol Use: No Hx Substance Use: No substance use type: does not use
[2021-06-29] MEDS ORDERED: ceFAZolin 2,000 MG in SYRINGE 0 ML IV SCH (16:30)
[2021-06-29] MEDS ORDERED: CITRIC ACID/SODIUM CITRATE 15 ML UDC PO SCH (16:30)
[2021-06-29] MEDS ORDERED: LACTATED RINGER'S 1,000 ML IV SCH (16:30)
[2021-06-29] MEDS ORDERED: SODIUM CHLORIDE 0.9% 250 ML IV PRN (16:46)
[2021-06-29] MEDS ORDERED: OXYTOCIN 30 UNITS/500 ML BAG IV PRN ×2 (16:46→21:36)
[2021-06-29] MEDS ORDERED: PENICILLIN G POTASSIUM 6 MU in DEXTROSE 5% 250 ML IV STA (16:46)
--- NOTE | 2021-06-29 16:59 | History & Physical Report ---
Date of Service June 29, 2021 Assessment & Plan (1) Desires (vaginal after ) trial: (2) Previous delivery affecting , antepartum: (3) Group B Streptococcus carrier, antepartum: Plan: Jeffery is a 25-year-old at 40 weeks 6 days gestational age who presents with spontaneous rupture of membranes. Patient has a history of a prior Caesarean section performed for failure to progress. Patient has been extensively counseled on multiple occasions on the risk of trial of labor / . consent forms have been reviewed and signed. This point we will allow time to see if spontaneous labor ensues as this has the lowest risk of uterine rupture. Will start penicillin for GBS positive. Type and crossmatch for 2 units Admission and Anticipated Discharge Date Admission Date: June 29, 2021 History of Present Illness Primary Care Provider: NO PCP Jeffery Is a 25-year-old currently at 40 weeks 6 days gestational age presents with spontaneous rupture of membranes. Patient reports spontaneous rupture membranes at 3:00 p.m. today. She reports that contractions have been increasing in intensity and frequency since onset of rupture. Denies any vaginal bleeding. Reports good movement. Of note patient has a history of 1 prior Caesarean section performed secondary to intolerance of labor. Patient has been extensively counseled on trial of labor after section versus repeat section. risks of a trial of labor / have been extensively reviewed including the risk of catastrophic injury to both baby and mother In the event of a uterine rupture. Discussed the risk at baseline is approximately 1% and increases due to additional independent risk factors including augmentation / induction. consents have been reviewed and signed. otherwise complicated by GBS positive. Allergies Allergy/AdvReac Type Severity Reaction Status Date / Time No Known Allergies Allergy Verified 06/29/21 09:12 Home Medications Medication Instructions Recorded Confirmed Type vitamins-iron fumarate 27 1 tab PO DAILY 12/07/18 06/29/21 History mg iron-folic acid 0.8 mg tablet ( Vitamin) Patient History Medical History No known health problems Surgical History S/P section Family History Other No history of previous surgery No known health problems Denies family history of Ovarian cancer Breast cancer Colorectal cancer Social History Smoking Status: Never smoker Second Hand Exposure: No; Do You Dip or Chew Tobacco: No; Tobacco Cessation Education Requested by Patient: No Hx Alcohol Use: No Hx Substance Use: No Preferred Language: Spanish Communication Ability: Effective Silvering Department Supervisor Required: No Beliefs That Will Affect Care: None marital status: marital status details: Israel Genao [phone] Current Living Situation: Spouse and Family Current Living Situation Comment: lives with spouse, son, cat-spouse changing litter current occupational status: employed current occupation: [employer] Other Information That Helps Us Care for You: No Feels Safe at Home: Yes Safety Concerns: Feels Safe At This Time Assistive Devices: None Physical Exam Constitutional: WD/WN, vitals as above Gastrointestinal (Abdomen): Percussion/Palpation: abdomen soft; abdomen nontender, no guarding and abdomen not rigid Genitourinary: Manual OB Exam: + cervical dilation (1), + cervical effacement 50%, + station -2 and + amniotic fluid ( Gross rupture confirmed) clear OB Exam Monitor Tracing: + external FHT monitor used, + external uterine monitor used, + category I and + normal FHT variability; no early decelerations present, no late decelerations present and no variable decelerations Results & Data ([facility]) Vital Signs (Past 12 Hours) Vital Signs Pulse Resp BP 06/29/21 16:17 109 H 110/69 06/29/21 16:15 18 Coding Level of Care Code None Diagnoses Desires (vaginal after ) trial O34.219 Previous delivery affecting , antepartum O34.219 Group B Streptococcus carrier, antepartum O99.820
[2021-06-29 17:12] LABS: Hematocrit (blood only) 32.5 % (37-47); Hemoglobin 9.9 g/dL (12.0-16.0); Mean Corpuscular Hemoglobin 23.5 pg (25-34); Mean Corpuscular Hgb Conc 30.5 g/dL (32-36); Mean Platelet Volume 11.2 fL (7.4-10.4); Platelet Count 158 K/uL (130-400); RDW Coefficient of Variation 15.7 % (11.5-14.5); Red Blood Count 4.22 M/uL (4.2-5.4); White Blood Count 8.83 K/uL (4.8-10.8)
[2021-06-29] MEDS: LACTATED RINGER'S 1,000 ML IV PRN (18:44)
[2021-06-29] MEDS: PENICILLIN G POTASSIUM 3 MU in DEXTROSE 5% 100 ML IV PRN (22:51)
[2021-06-30] MEDS: LACTATED RINGER'S 1,000 ML IV PRN ×4 (00:01→17:52)
--- NOTE | 2021-06-30 00:11 | Labor Progress Brief Note ---
Date of Service June 30, 2021 Subjective Reason For Note: Routine Evaluation Assessment & Plan (1) Desires (vaginal after ) trial: Plan: Cat 1, Cxt q10-15. Discussed starting pitocin. Reviewed slight increased risk of uterine rupture. Patient agrees with plan. (2) Delivery by section of full-term infant: (3) Group B Streptococcus carrier, antepartum: Admission and Anticipated Discharge Date Admission Date: June 29, 2021 Results & Data ([facility]) Vital Signs (Past 12 Hours) Vital Signs Temp Pulse Resp BP 06/30/21 00:01 68 16 124/87 06/29/21 23:00 36.8 C 18 06/29/21 22:52 66 113/68 06/29/21 22:05 66 123/79 06/29/21 21:01 36.8 C 16 06/29/21 19:12 75 115/78 06/29/21 19:01 36.9 C 18 06/29/21 16:17 109 H 110/69 06/29/21 16:15 18 Coding Level of Care Code None Diagnoses Desires (vaginal after ) trial O34.219 Delivery by section of full-term O82 Group B Streptococcus carrier, antepartum O99.820
[2021-06-30] MEDS: PENICILLIN G POTASSIUM 3 MU in DEXTROSE 5% 100 ML IV PRN ×4 (02:41→14:26)
[2021-06-30] MEDS ORDERED: ePHEDrine sulfate 50 MG/ML AMP ONE (02:57)
[2021-06-30] MEDS ORDERED: BUPIVACAINE 0.25% 30 ML VIAL ONE (02:57)
[2021-06-30] MEDS ORDERED: fentaNYL citrate 100 MCG/2 ML VIAL ONE ×2 (02:57→20:04)
[2021-06-30] MEDS ORDERED: SODIUM CHLORIDE 0.9% INJ 10 ML VIAL ONE (02:57)
[2021-06-30] MEDS ORDERED: NALBUPHINE HCL INJ 10 MG/ML AMP IV PRN ×2 (02:58→20:31)
[2021-06-30] MEDS ORDERED: diphenhydrAMINE 50 MG/ML VIAL IV PRN ×2 (02:58→20:31)
[2021-06-30] MEDS ORDERED: NALOXONE HCL 1 MG in SODIUM CHLORIDE 0.9% 1000ML 1,000 ML IV PRN ×2 (02:58→20:31)
[2021-06-30] MEDS ORDERED: ONDANSETRON INJ 2 MG/ML 2 ML VIAL IV PRN ×2 (02:58→20:31)
[2021-06-30] MEDS ORDERED: fentaNYL 2MCG/ML ROPIVACAINE 1.25MG/ML 100 ML BAG EPI PRN (02:58)
[2021-06-30] MEDS ORDERED: ePHEDrine sulfate 50 MG/ML AMP IV PRN ×2 (02:58→20:31)
[2021-06-30] MEDS ORDERED: NALOXONE HCL 0.4 MG/1 ML VIAL/CARP IV PRN ×2 (02:58→20:31)
[2021-06-30] MEDS ORDERED: fentaNYL 2MCG/ML ROPIVACAINE 1.25MG/ML 100 ML BAG EPI ONE (02:58)
--- NOTE | 2021-06-30 03:06 | Anesthesiology Consultation ---
Date of Service June 30, 2021 The patient is a . The risk and signs of uterine rupture were discussed with her. Assessment & Plan Chart Review Chart Review: Patient NOT seen in Pre Admission Testing and Acceptable Risk for Labor Epidural Consults Requested none ASA ASA2 Proposed Anesthesia Anesthesia Type: Labor Epidural and CSE Risk / Benefits Reviewed With: PT / POA / Parent / Guardian, Accepts Plan and Informed Consent Obtained History Surgery Operation Date: 06/30/21 09:10 Proposed Procedures p Section (Delivery of Baby Through Abdominal Incision) - Marge Quiros MD Height/Weight Height: 5 ft 4 in Weight: 84.822 kg Allergies Allergy/AdvReac Type Severity Reaction Status Date / Time No Known Allergies Allergy Verified 06/29/21 09:12 Medications Home Medications Medication Instructions Recorded Confirmed Last Taken vitamins-iron fumarate 27 1 tab PO DAILY 12/07/18 06/29/21 06/15/21 mg iron-folic acid 0.8 mg tablet ( Vitamin) Active Medications Generic Name Dose Route Start Last Admin Trade Name Jones PRN Reason Stop Dose Admin Lactated Ringer's 1,000 mls @ 125 mls/hr 06/29/21 16:46 06/30/21 00:01 Lr IV 07/01/21 16:45 125 mls/hr .Q8H PRN Administration L&D Protocol Protocol Penicillin G Potassium 3 mu/ 106 mls @ 100 mls/hr 06/29/21 16:46 06/30/21 02:41 Dextrose IV 07/09/21 16:45 100 mls/hr Q4H PRN Administration Give until delivery Oxytocin 30 units in 500 mls @ 5 mls/hr 06/29/21 21:36 06/30/21 02:00 Pitocin IV 07/01/21 21:35 0.3 units/hr .Q24H PRN 5 mls/hr Labor Induction/Augmentation Titration Protocol 0.3 UNITS/HR NPO Date Last Intake of Fluids: 06/30/21 Time Last Intake of Fluids: 01:00 Date Last Intake of Solids: 06/29/21 Time Last Intake of Solids: 14:00 Past Medical History Medical History No known health problems Exercise / Class Metabolic Activity II 4-5 Yardwork/Stairs/Walk up hill Past Family History Family History Other No history of previous surgery No known health problems Denies family history of Ovarian cancer Breast cancer Colorectal cancer Past Surgical History Surgical History S/P section Past Anesthesia History No Hx of Anesthesia Complications and No Family Hx of Anesthesia Complications History of PONV No Hx of PONV and No Hx of Motion Sickness Social History Smoking Status: Never smoker Do You Dip or Chew Tobacco: No Hx Alcohol Use: No Hx Substance Use: No substance use type: does not use Review of Systems no chest pain or sob Physical Exam Vital Signs Last Vital Signs Temp 36.9 C 06/30/21 02:33 Pulse 68 06/30/21 02:59 Resp 18 06/30/21 02:33 BP 112/75 06/30/21 02:33 Pulse Ox 100 06/30/21 02:59 ENMT Mouth: no TMJ abnormality Thyromental Distance: > or= 3.5 Finger Breadths Mallampati Class: II Neck normal visual inspection Respiratory normal respiratory effort Auscultation: lungs clear to auscultation bilaterally Cardiovascular Rate/Rhythm: regular rate and regular rhythm Musculoskeletal Spine: normal cervical ROM Neurologic moves all extremities Psychiatric Orientation: alert and oriented x 3 Testing Laboratory Results 06/29/21 17:01 Blood Type O Positive 06/29/21 17:01 Antibody Screen NEGATIVE 06/29/21 17:01
--- NOTE | 2021-06-30 09:50 | Labor Progress Brief Note ---
Date of Service June 30, 2021 Subjective Comfortable w/ epidural Assessment & Plan (1) Desires (vaginal after ) trial: Plan: VSS Fetus cat 1 Labor - small amount of progress since arom of forebag, continue pit GBS neg Epidural in place Admission and Anticipated Discharge Date Admission Date: June 29, 2021 Physical Exam Genitourinary: Manual OB Exam: + cervical dilation (4-5), + cervical effacement 80% and + station -1 OB Exam Monitor Tracing: + external FHT monitor used, + external uterine monitor used (q3-5) and + category I (135/mod/+accel/+early decels) Results & Data ([facility]) Vital Signs (Past 12 Hours) Vital Signs Temp Pulse Resp BP Pulse Ox 06/30/21 09:46 61 94 06/30/21 09:45 61 95 06/30/21 09:40 81 94 06/30/21 09:39 67 110/74 06/30/21 09:38 64 91 06/30/21 09:35 75 100 06/30/21 09:31 69 93 06/30/21 09:30 65 97 06/30/21 09:25 65 94 06/30/21 09:23 75 118/75 06/30/21 09:20 64 97 06/30/21 09:17 69 94 06/30/21 09:15 68 100 06/30/21 09:10 67 91 06/30/21 09:09 71 136/76 06/30/21 09:05 62 100 06/30/21 09:00 63 100 06/30/21 08:55 61 100 06/30/21 08:53 60 110/73 06/30/21 08:51 98.2 F 20 06/30/21 08:50 57 L 100 06/30/21 08:48 75 91 06/30/21 08:45 61 98 06/30/21 08:40 76 100 06/30/21 08:38 67 109/74 06/30/21 08:35 63 99 06/30/21 08:30 90 96 06/30/21 08:25 82 99 06/30/21 08:24 76 107/66 06/30/21 08:20 64 100 06/30/21 08:15 90 100 06/30/21 08:14 98 H 90 06/30/21 08:10 76 99 06/30/21 08:09 88 103/66 06/30/21 08:05 63 100 06/30/21 08:00 82 100 06/30/21 07:56 76 91 06/30/21 07:55 76 96 06/30/21 07:53 98 H 20 90/57 L 06/30/21 07:50 55 L 99 06/30/21 07:45 68 100 06/30/21 07:40 58 L 98 06/30/21 07:38 69 85/54 L 06/30/21 07:35 58 L 100 06/30/21 07:30 62 100 06/30/21 07:27 67 90 06/30/21 07:25 68 104/57 L 98 06/30/21 07:21 65 91 06/30/21 07:20 64 97 06/30/21 07:15 91 H 99 06/30/21 07:12 72 93 06/30/21 07:10 55 L 100 06/30/21 07:09 60 102/65 06/30/21 07:08 61 103/69 06/30/21 07:05 71 100 06/30/21 07:04 71 90 06/30/21 07:02 98.2 F 20 06/30/21 07:00 57 L 100 06/30/21 06:55 55 L 113/71 100 06/30/21 06:50 59 L 100 06/30/21 06:45 57 L 100 06/30/21 06:40 58 L 100 06/30/21 06:39 62 108/66 06/30/21 06:35 56 L 98 06/30/21 06:30 60 100 06/30/21 06:25 54 L 100 06/30/21 06:23 61 18 109/68 06/30/21 06:20 59 L 100 06/30/21 06:15 65 100 06/30/21 06:10 57 L 100 06/30/21 06:08 61 100/60 06/30/21 06:07 78 91 06/30/21 06:05 70 100 06/30/21 06:00 61 90 06/30/21 05:57 63 94 06/30/21 05:55 66 100 06/30/21 05:54 69 116/77 06/30/21 05:52 75 92 09/10/21 05:50 56 L 99 06/30/21 05:45 59 L 99 06/30/21 05:40 60 107/70 100 06/30/21 05:34 60 98 06/30/21 05:29 58 L 99 06/30/21 05:24 60 99 06/30/21 05:23 55 L 107/69 06/30/21 05:19 61 98 06/30/21 05:14 55 L 99 06/30/21 05:09 98.2 F 78 18 100 06/30/21 05:08 54 L 105/72 06/30/21 05:04 54 L 100 06/30/21 04:59 56 L 100 06/30/21 04:54 61 127/81 100 06/30/21 04:49 85 78 L 06/30/21 04:44 72 100 06/30/21 04:39 71 100 06/30/21 04:38 68 98/59 L 91 06/30/21 04:34 61 100 06/30/21 04:31 16 06/30/21 04:29 60 100 06/30/21 04:24 66 100 06/30/21 04:23 80 97/58 L 06/30/21 04:19 62 100 06/30/21 04:14 60 100 06/30/21 04:09 60 100 06/30/21 04:08 94 H 97/56 L 06/30/21 04:04 61 100 06/30/21 03:59 62 100 06/30/21 03:54 67 100 06/30/21 03:53 63 102/55 L 06/30/21 03:49 61 100 06/30/21 03:45 16 06/30/21 03:44 66 100 06/30/21 03:39 67 96 06/30/21 03:37 78 100/50 L 06/30/21 03:34 71 100 06/30/21 03:30 71 99/56 L 06/30/21 03:29 69 104/57 L 100 06/30/21 03:28 75 92 06/30/21 03:26 75 99/59 L 06/30/21 03:25 98.2 F 18 06/30/21 03:24 73 93/52 L 96 06/30/21 03:22 62 100/57 L 06/30/21 03:20 18 06/30/21 03:19 63 106/50 L 100 06/30/21 03:18 68 91 06/30/21 03:16 71 122/66 06/30/21 03:15 16 06/30/21 03:14 75 100 06/30/21 03:11 77 87 L 06/30/21 03:09 90 100 06/30/21 03:04 68 60 L 06/30/21 02:59 68 100 06/30/21 02:58 70 88 L 06/30/21 02:54 58 L 100 06/30/21 02:33 98.4 F 97 H 18 112/75 06/30/21 01:00 74 121/75 06/30/21 00:58 98.2 F 18 06/30/21 00:01 68 16 124/87 06/29/21 23:00 98.2 F 18 06/29/21 22:52 66 113/68 06/29/21 22:05 66 123/79 Coding Level of Care Code None Diagnoses Desires (vaginal after ) trial O34.219
--- NOTE | 2021-06-30 14:10 | Labor Progress Brief Note ---
Date of Service June 30, 2021 Subjective Comfortable with epidural. FHT Cat 1 with early decels Alleman irreg, Q 2-4 min SVE similar to last check . Discussed with patient - not much change since last check. She is very motivated for , and would like to continue labor. Discussed that will plan to continue labor and recheck cervix to assess for progress. Assessment & Plan Admission and Anticipated Discharge Date Admission Date: June 29, 2021 Results & Data ([facility]) Vital Signs (Past 12 Hours) Vital Signs Temp Pulse Resp BP Pulse Ox 06/30/21 14:05 70 99 06/30/21 14:02 89 86 L 06/30/21 14:00 72 100 06/30/21 13:55 79 97 06/30/21 13:54 76 116/70 06/30/21 13:50 67 98 06/30/21 13:48 84 91 06/30/21 13:45 64 100 06/30/21 13:40 72 99 06/30/21 13:39 72 109/65 06/30/21 13:35 67 98 06/30/21 13:33 66 91 06/30/21 13:30 64 99 06/30/21 13:25 65 98 06/30/21 13:23 73 105/57 L 06/30/21 13:20 71 99 06/30/21 13:18 67 91 06/30/21 13:15 68 100 06/30/21 13:10 87 77 L 06/30/21 13:07 75 93 06/30/21 13:05 77 82 L 06/30/21 13:03 36.4 C L 20 06/30/21 13:00 92 H 92 06/30/21 12:55 70 106/64 94 06/30/21 12:50 70 70 L 06/30/21 12:49 71 92 06/30/21 12:45 73 96 06/30/21 12:42 69 92 06/30/21 12:40 65 91 06/30/21 12:38 72 102/69 06/30/21 12:36 78 93 06/30/21 12:35 70 100 06/30/21 12:30 67 100 06/30/21 12:27 66 93 06/30/21 12:25 68 99 06/30/21 12:23 62 114/76 06/30/21 12:20 69 100 06/30/21 12:15 78 83 L 06/30/21 12:14 64 87 L 06/30/21 12:10 66 110/69 100 06/30/21 12:07 64 92 06/30/21 12:05 64 99 06/30/21 12:02 70 94 06/30/21 12:00 65 100 06/30/21 11:56 62 90 06/30/21 11:55 59 L 100 06/30/21 11:53 68 20 105/71 06/30/21 11:50 66 100 06/30/21 11:48 60 92 06/30/21 11:45 62 100 06/30/21 11:40 71 82 L 06/30/21 11:39 70 118/84 06/30/21 11:35 63 100 06/30/21 11:34 60 93 06/30/21 11:30 65 100 06/30/21 11:25 61 100 06/30/21 11:23 61 108/70 06/30/21 11:20 61 100 06/30/21 11:15 59 L 99 06/30/21 11:10 64 100 06/30/21 11:09 99 H 119/78 06/30/21 11:08 78 90 06/30/21 11:05 62 100 06/30/21 11:01 83 90 06/30/21 11:00 74 99 06/30/21 10:55 36.7 C 58 L 18 110/67 99 06/30/21 10:50 59 L 100 06/30/21 10:45 59 L 100 06/30/21 10:40 63 99 06/30/21 10:38 63 118/73 06/30/21 10:36 67 93 06/30/21 10:35 67 100 06/30/21 10:30 62 100 06/30/21 10:25 57 L 100 06/30/21 10:24 60 108/67 06/30/21 10:20 57 L 99 06/30/21 10:15 61 100 06/30/21 10:10 65 99 06/30/21 10:09 58 L 97/60 L 06/30/21 10:05 62 99 06/30/21 10:00 65 99 06/30/21 09:55 78 20 87 L 06/30/21 09:54 75 105/65 91 06/30/21 09:50 82 100 06/30/21 09:46 61 94 06/30/21 09:45 61 95 06/30/21 09:40 81 94 06/30/21 09:39 67 110/74 06/30/21 09:38 64 91 06/30/21 09:35 75 100 06/30/21 09:31 69 93 06/30/21 09:30 65 97 06/30/21 09:25 65 94 06/30/21 09:23 75 118/75 06/30/21 09:20 64 97 06/30/21 09:17 69 94 06/30/21 09:15 68 100 06/30/21 09:10 67 91 06/30/21 09:09 71 136/76 06/30/21 09:05 62 100 06/30/21 09:00 63 100 06/30/21 08:55 61 100 06/30/21 08:53 60 110/73 06/30/21 08:51 36.8 C 20 06/30/21 08:50 57 L 100 06/30/21 08:48 75 91 06/30/21 08:45 61 98 06/30/21 08:40 76 100 06/30/21 08:38 67 109/74 06/30/21 08:35 63 99 06/30/21 08:30 90 96 06/30/21 08:25 82 99 06/30/21 08:24 76 107/66 06/30/21 08:20 64 100 06/30/21 08:15 90 100 06/30/21 08:14 98 H 90 06/30/21 08:10 76 99 06/30/21 08:09 88 103/66 06/30/21 08:05 63 100 06/30/21 08:00 82 100 06/30/21 07:56 76 91 06/30/21 07:55 76 96 06/30/21 07:53 98 H 20 90/57 L 06/30/21 07:50 55 L 99 06/30/21 07:45 68 100 06/30/21 07:40 58 L 98 06/30/21 07:38 69 85/54 L 06/30/21 07:35 58 L 100 06/30/21 07:30 62 100 06/30/21 07:27 67 90 06/30/21 07:25 68 104/57 L 98 06/30/21 07:21 65 91 06/30/21 07:20 64 97 06/30/21 07:15 91 H 99 06/30/21 07:12 72 93 06/30/21 07:10 55 L 100 06/30/21 07:09 60 102/65 06/30/21 07:08 61 103/69 06/30/21 07:05 71 100 06/30/21 07:04 71 90 06/30/21 07:02 36.8 C 20 06/30/21 07:00 57 L 100 06/30/21 06:55 55 L 113/71 100 06/30/21 06:50 59 L 100 06/30/21 06:45 57 L 100 06/30/21 06:40 58 L 100 06/30/21 06:39 62 108/66 06/30/21 06:35 56 L 98 06/30/21 06:30 60 100 06/30/21 06:25 54 L 100 06/30/21 06:23 61 18 109/68 06/30/21 06:20 59 L 100 06/30/21 06:15 65 100 06/30/21 06:10 57 L 100 06/30/21 06:08 61 100/60 06/30/21 06:07 78 91 06/30/21 06:05 70 100 06/30/21 06:00 61 90 06/30/21 05:57 63 94 06/30/21 05:55 66 100 06/30/21 05:54 69 116/77 06/30/21 05:52 75 92 06/30/21 05:50 56 L 99 06/30/21 05:45 59 L 99 06/30/21 05:40 60 107/70 100 06/30/21 05:34 60 98 06/30/21 05:29 58 L 99 06/30/21 05:24 60 99 06/30/21 05:23 55 L 107/69 06/30/21 05:19 61 98 06/30/21 05:14 55 L 99 06/30/21 05:09 36.8 C 78 18 100 06/30/21 05:08 54 L 105/72 06/30/21 05:04 54 L 100 06/30/21 04:59 56 L 100 06/30/21 04:54 61 127/81 100 06/30/21 04:49 85 78 L 06/30/21 04:44 72 100 06/30/21 04:39 71 100 06/30/21 04:38 68 98/59 L 91 06/30/21 04:34 61 100 06/30/21 04:31 16 06/30/21 04:29 60 100 06/30/21 04:24 66 100 06/30/21 04:23 80 97/58 L 06/30/21 04:19 62 100 06/30/21 04:14 60 100 06/30/21 04:09 60 100 06/30/21 04:08 94 H 97/56 L 06/30/21 04:04 61 100 06/30/21 03:59 62 100 06/30/21 03:54 67 100 06/30/21 03:53 63 102/55 L 06/30/21 03:49 61 100 06/30/21 03:45 16 06/30/21 03:44 66 100 06/30/21 03:39 67 96 06/30/21 03:37 78 100/50 L 06/30/21 03:34 71 100 06/30/21 03:30 71 99/56 L 06/30/21 03:29 69 104/57 L 100 06/30/21 03:28 75 92 06/30/21 03:26 75 99/59 L 06/30/21 03:25 36.8 C 18 06/30/21 03:24 73 93/52 L 96 06/30/21 03:22 62 100/57 L 06/30/21 03:20 18 06/30/21 03:19 63 106/50 L 100 06/30/21 03:18 68 91 06/30/21 03:16 71 122/66 06/30/21 03:15 16 06/30/21 03:14 75 100 06/30/21 03:11 77 87 L 06/30/21 03:09 90 100 06/30/21 03:04 68 60 L 06/30/21 02:59 68 100 06/30/21 02:58 70 88 L 06/30/21 02:54 58 L 100 06/30/21 02:33 36.9 C 97 H 18 112/75 Coding Level of Care Code None
--- NOTE | 2021-06-30 17:01 | Labor Progress Brief Note ---
Date of Service June 30, 2021 Subjective Feeling like epidural is not working as well on right side. FHT 145 mod dg, +accels, with recurrent late decelerations - not responsive to repositioning of patient Cervix same as last check -/0 to -1 station. I discussed with patient that she has not made cervical progress, and that the heart decelerations are concerning for intolerance to labor. Especially in light of her history of , this is concerning that baby is not tolerating contractions. Recommend that we proceed to section at this time, as baby is remote from delivery and Cat 3 tracing. She wants to discuss with her . Assessment & Plan Admission and Anticipated Discharge Date Admission Date: June 29, 2021 Results & Data ([facility]) Vital Signs (Past 12 Hours) Vital Signs Temp Pulse Resp BP Pulse Ox 06/30/21 16:53 85 119/75 06/30/21 16:51 88 99 06/30/21 16:50 108 H 83 L 06/30/21 16:46 94 H 94 06/30/21 16:43 89 90 06/30/21 16:41 79 99 06/30/21 16:38 87 109/58 L 06/30/21 16:36 80 99 06/30/21 16:31 85 98 06/30/21 16:27 102 H 92 06/30/21 16:26 98 H 100 06/30/21 16:24 78 18 118/72 06/30/21 16:21 91 H 100 06/30/21 16:18 94 H 93 06/30/21 16:16 96 H 100 06/30/21 16:11 99 H 83 L 06/30/21 16:09 92 H 113/73 92 06/30/21 16:06 84 100 06/30/21 16:01 79 99 06/30/21 16:00 83 87 L 06/30/21 15:56 85 96 06/30/21 15:54 98 H 88 L 06/30/21 15:53 94 H 113/72 06/30/21 15:51 85 88 L 06/30/21 15:49 92 H 91 06/30/21 15:46 95 H 95 06/30/21 15:44 105 H 94 06/30/21 15:41 98 H 96 06/30/21 15:38 79 121/68 91 06/30/21 15:36 85 98 06/30/21 15:31 79 100 06/30/21 15:26 87 100 06/30/21 15:23 90 113/66 90 06/30/21 15:21 97 H 98 06/30/21 15:16 114 H 95 06/30/21 15:12 88 89 L 06/30/21 15:10 84 98 06/30/21 15:08 88 130/85 06/30/21 15:05 84 97 06/30/21 15:00 87 93 06/30/21 14:57 90 92 06/30/21 14:55 75 95 06/30/21 14:53 36.9 C 85 20 124/74 06/30/21 14:50 84 98 06/30/21 14:48 84 87 L 06/30/21 14:45 89 83 L 06/30/21 14:41 104 H 92 06/30/21 14:40 79 100 06/30/21 14:38 77 112/72 06/30/21 14:35 79 80 L 06/30/21 14:33 77 89 L 06/30/21 14:30 77 100 06/30/21 14:28 81 92 06/30/21 14:25 75 99 06/30/21 14:23 84 91 06/30/21 14:20 80 80 L 06/30/21 14:17 76 90 06/30/21 14:15 65 98 06/30/21 14:10 78 99 06/30/21 14:08 77 116/69 06/30/21 14:07 74 90 06/30/21 14:05 70 99 06/30/21 14:02 89 86 L 06/30/21 14:00 72 100 06/30/21 13:55 79 97 06/30/21 13:54 76 20 116/70 06/30/21 13:50 67 98 06/30/21 13:48 84 91 06/30/21 13:45 64 100 06/30/21 13:40 72 99 06/30/21 13:39 72 109/65 06/30/21 13:35 67 98 06/30/21 13:33 66 91 06/30/21 13:30 64 99 06/30/21 13:25 65 98 06/30/21 13:23 73 105/57 L 06/30/21 13:20 71 99 06/30/21 13:18 67 91 06/30/21 13:15 68 100 06/30/21 13:10 87 77 L 06/30/21 13:07 75 93 06/30/21 13:05 77 82 L 06/30/21 13:03 36.4 C L 20 06/30/21 13:00 92 H 92 06/30/21 12:55 70 106/64 94 06/30/21 12:50 70 70 L 06/30/21 12:49 71 92 06/30/21 12:45 73 96 06/30/21 12:42 69 92 06/30/21 12:40 65 91 06/30/21 12:38 72 102/69 06/30/21 12:36 78 93 06/30/21 12:35 70 100 06/30/21 12:30 67 100 06/30/21 12:27 66 93 06/30/21 12:25 68 99 06/30/21 12:23 62 114/76 06/30/21 12:20 69 100 06/30/21 12:15 78 83 L 06/30/21 12:14 64 87 L 06/30/21 12:10 66 110/69 100 06/30/21 12:07 64 92 06/30/21 12:05 64 99 06/30/21 12:02 70 94 06/30/21 12:00 65 100 06/30/21 11:56 62 90 06/30/21 11:55 59 L 100 06/30/21 11:53 68 20 105/71 06/30/21 11:50 66 100 06/30/21 11:48 60 92 06/30/21 11:45 62 100 06/30/21 11:40 71 82 L 06/30/21 11:39 70 118/84 06/30/21 11:35 63 100 06/30/21 11:34 60 93 06/30/21 11:30 65 100 06/30/21 11:25 61 100 06/30/21 11:23 61 108/70 06/30/21 11:20 61 100 06/30/21 11:15 59 L 99 06/30/21 11:10 64 100 06/30/21 11:09 99 H 119/78 06/30/21 11:08 78 90 06/30/21 11:05 62 100 06/30/21 11:01 83 90 06/30/21 11:00 74 99 06/30/21 10:55 36.7 C 58 L 18 110/67 99 06/30/21 10:50 59 L 100 06/30/21 10:45 59 L 100 06/30/21 10:40 63 99 06/30/21 10:38 63 118/73 06/30/21 10:36 67 93 06/30/21 10:35 67 100 06/30/21 10:30 62 100 06/30/21 10:25 57 L 100 06/30/21 10:24 60 108/67 06/30/21 10:20 57 L 99 06/30/21 10:15 61 100 06/30/21 10:10 65 99 06/30/21 10:09 58 L 97/60 L 06/30/21 10:05 62 99 06/30/21 10:00 65 99 06/30/21 09:55 78 20 87 L 06/30/21 09:54 75 105/65 91 06/30/21 09:50 82 100 06/30/21 09:46 61 94 06/30/21 09:45 61 95 06/30/21 09:40 81 94 06/30/21 09:39 67 110/74 06/30/21 09:38 64 91 06/30/21 09:35 75 100 06/30/21 09:31 69 93 06/30/21 09:30 65 97 06/30/21 09:25 65 94 06/30/21 09:23 75 118/75 06/30/21 09:20 64 97 06/30/21 09:17 69 94 06/30/21 09:15 68 100 06/30/21 09:10 67 91 06/30/21 09:09 71 136/76 06/30/21 09:05 62 100 06/30/21 09:00 63 100 06/30/21 08:55 61 100 06/30/21 08:53 60 110/73 06/30/21 08:51 36.8 C 20 06/30/21 08:50 57 L 100 06/30/21 08:48 75 91 06/30/21 08:45 61 98 06/30/21 08:40 76 100 06/30/21 08:38 67 109/74 06/30/21 08:35 63 99 06/30/21 08:30 90 96 06/30/21 08:25 82 99 06/30/21 08:24 76 107/66 06/30/21 08:20 64 100 06/30/21 08:15 90 100 06/30/21 08:14 98 H 90 06/30/21 08:10 76 99 06/30/21 08:09 88 103/66 06/30/21 08:05 63 100 06/30/21 08:00 82 100 06/30/21 07:56 76 91 06/30/21 07:55 76 96 06/30/21 07:53 98 H 20 90/57 L 06/30/21 07:50 55 L 99 06/30/21 07:45 68 100 06/30/21 07:40 58 L 98 06/30/21 07:38 69 85/54 L 06/30/21 07:35 58 L 100 06/30/21 07:30 62 100 06/30/21 07:27 67 90 06/30/21 07:25 68 104/57 L 98 06/30/21 07:21 65 91 06/30/21 07:20 64 97 06/30/21 07:15 91 H 99 06/30/21 07:12 72 93 06/30/21 07:10 55 L 100 06/30/21 07:09 60 102/65 06/30/21 07:08 61 103/69 06/30/21 07:05 71 100 06/30/21 07:04 71 90 06/30/21 07:02 36.8 C 20 06/30/21 07:00 57 L 100 06/30/21 06:55 55 L 113/71 100 06/30/21 06:50 59 L 100 06/30/21 06:45 57 L 100 06/30/21 06:40 58 L 100 06/30/21 06:39 62 108/66 06/30/21 06:35 56 L 98 06/30/21 06:30 60 100 06/30/21 06:25 54 L 100 06/30/21 06:23 61 18 109/68 06/30/21 06:20 59 L 100 06/30/21 06:15 65 100 06/30/21 06:10 57 L 100 06/30/21 06:08 61 100/60 06/30/21 06:07 78 91 06/30/21 06:05 70 100 06/30/21 06:00 61 90 06/30/21 05:57 63 94 06/30/21 05:55 66 100 06/30/21 05:54 69 116/77 06/30/21 05:52 75 92 06/30/21 05:50 56 L 99 06/30/21 05:45 59 L 99 06/30/21 05:40 60 107/70 100 06/30/21 05:34 60 98 06/30/21 05:29 58 L 99 06/30/21 05:24 60 99 06/30/21 05:23 55 L 107/69 06/30/21 05:19 61 98 06/30/21 05:14 55 L 99 06/30/21 05:09 36.8 C 78 18 100 06/30/21 05:08 54 L 105/72 06/30/21 05:04 54 L 100 06/30/21 04:59 56 L 100 Coding Level of Care Code None
--- NOTE | 2021-06-30 18:46 | History & Physical Bridge Note ---
Date of Service June 30, 2021 History & Physical Bridge Note I have examined the patient, reviewed the History & Physical and in the interval since the performance of the History & Physical I have noted the following changes of clinical significance: Patient had requested pitocin break for 1 hour, and baby did improve for most of the hour, however over the past 10-15 min, with each contraction, there have been continued decelerations and are now lates. Cervix is unchanged. I discussed with patient that cannot labor without contractions, and contractions are causing decelerations. She is agreeable to . Previously signed informed consent, questions answered.
[2021-06-30] MEDS ORDERED: CITRIC ACID/SODIUM CITRATE 15 ML UDC PO SCH (19:30)
[2021-06-30] MEDS ORDERED: ceFAZolin 2000MG 2,000 MG/15 ML SYR IV SCH (19:30)
[2021-06-30] MEDS ORDERED: ONDANSETRON INJ 2 MG/ML 2 ML VIAL ONE (20:04)
[2021-06-30] MEDS ORDERED: OXYTOCIN 10 UNITS/ML VIAL ONE (20:04)
[2021-06-30] MEDS ORDERED: MoRPHine SULFATE PF 1 MG/ML 10 ML AMP/VIAL ONE (20:14)
[2021-06-30] MEDS ORDERED: HYDROmorphone INJ 0.5 MG/0.5 ML SYR IV PRN (20:31)
[2021-06-30] MEDS ORDERED: NALOXONE HCL 0.08 MG in SYRINGE 1.8 ML IV PRN (20:31)
[2021-06-30] MEDS ORDERED: MoRPHine SULFATE PF 1 MG/ML 10 ML AMP/VIAL EPI ONE (20:31)
[2021-06-30] MEDS ORDERED: LACTATED RINGER'S 500 ML IV PRN (20:31)
[2021-06-30] MEDS ORDERED: ACETAMINOPHEN 1000 MG/100 ML IV IV PRN (20:33)
[2021-06-30] MEDS ORDERED: LIDOCAINE 2%/EPINEPHRINE 1:200,000 20 ML SDV ONE (20:36)
[2021-06-30] MEDS ORDERED: KETOROLAC 30 MG/ML VIAL ONE (20:38)
[2021-06-30] MEDS ORDERED: SODIUM CHLORIDE 0.9% 1000ML 1,000 ML IV SCH (20:45)
[2021-06-30] MEDS ORDERED: NO NARCOTICS OR SEDATIVES SCH (20:45)
--- NOTE | 2021-06-30 21:39 | Anesthesia Procedure Note ---
Date of Service June 30, 2021 Anesthesia Post Epidural Note Vital Signs Vital Signs: Temp Pulse Resp BP Pulse Ox 37.0 C 86 18 120/62 100 06/30/21 19:34 06/30/21 21:33 06/30/21 19:34 06/30/21 21:29 06/30/21 21:33 Pain Intensity Lower Abdomen: Pain Intensity: 8 Notes Mental Status: alert / awake / arousable and participated in evaluation Nausea / Vomiting: adequately controlled Pain: adequately controlled Airway Patency, RR, SpO2: stable & adequate BP & HR: stable & adequate Hydration State: stable & adequate Neuraxial Anesthesia: was administered and sensory block is resolving Anesthetic Complications: no major complications apparent and Pt Satisfied with anesthetic care Epidural: Removed without complications and With tip intact
[2021-06-30] MEDS ORDERED: SENNA 8.6 MG TAB PO PRN (21:55)
[2021-06-30] MEDS ORDERED: SUPERCREAM 0.870% 15 GM JAR EXT PRN (21:55)
[2021-06-30] MEDS ORDERED: HYDROCORTISONE ACETATE 25 MG SUPP PR PRN (21:55)
[2021-06-30] MEDS ORDERED: BENZOCAINE 20% AER SPR 82.5 GM CAN EXT PRN (21:55)
[2021-06-30] MEDS ORDERED: DIPHTHERIA/TETANUS/PERTUSSIS 0.5 ML SYR/VIAL IM ONE (21:55)
[2021-06-30] MEDS ORDERED: MAGNESIUM HYDROXIDE SUSP 30 ML UDC PO PRN (21:55)
[2021-06-30] MEDS ORDERED: LACTATED RINGER'S 1,000 ML IV SCH (22:00)
--- NOTE | 2021-06-30 22:02 | Operative Report ---
[facility] Post Operative Report Pre & Post Diagnosis Operation Date: 06/30/21 16:55 Pre-Op Diagnosis: Repeat sections, trial of labor, non reassuring heart tracing, failure to dilate Post-Op Diagnosis: Repeat sections, trial of labor, non reassuring heart tracing, failure to dilate I identified the patient and participated in the time-out.: Yes Procedure Operation Date: 06/30/21 16:55 Actual Procedures p Section in LD - Aishwarya White DO Surgeon Aishwarya White DO Wire Mesh Knitter Courtney Avery MD Estimated Blood Loss 600 Findings Consistent with Post-Op Diagnosis Apgars 8/9, Weight 8#5.3oz. Specimens placenta, cord blood, cord gas Drains gonsalves, clear yellow Anesthesia Type L&D Only Epidural Exists Complications none Disposition Accompanied Patient To Recovery: Yes Disposition: L&D Indications 25yo @ 41 0/7, SROM with hopes to . Trial of labor led to prolonged period of failure to dilate beyond 5cm, and baby began to show nonreassuring heart tracings Cat 3. Recommended delivery by . Description of Procedure The patient was seen in her labor and delivery room, risks benefits and alternatives to surgery were reviewed. Informed consent obtained. Questions were answered. She was taken to the operating room, epidural was redosed by anesthesia. She was then prepared and draped in the usual sterile fashion in the supine position with a leftward tilt. Timeout was confirmed. The prior Pfannenstiel skin incision keloid scar was removed a scalpel, and carried through to the underlying layer of fascia. Fascia was nicked at midline, and this incision was extended bilaterally. The superior aspect of the fascial incision was grasped with Pennie clamps x2, elevated off the underlying rectus abdominis muscles, and dissected sharply and bluntly. In similar fashion, the inferior aspect of the fascial incision was dissected. The rectus abdominis muscles were , and the peritoneum was entered bluntly digitally. This was extended bilaterally. The bladder flap was taken down carefully using Metzenbaum scissors. Using a new scalpel, a low transverse uterine incision was created. Clear amniotic fluid noted. The was delivered from a cephalic presentation. The head delivered, followed by shoulders and body. Spontaneous cry on the field. The cord was doubly clamped and cut, and the infant was handed off to the waiting aquaculturist. A segment was retained for cord gases. Cord blood was obtained. The placenta was delivered spontaneously intact. The uterus was exteriorized, and cleared of all clots and debris. The hysterotomy incision was reapproximated using 0 Vicryl in a running locked stitch. A second layer of the same suture was used to imbricate the incision. Posterior uterus was evaluated and normal. The uterus was returned to the abdomen, and gutters were cleared of clots and debris. After application of Barrett powder on raw edges of uterine aspect of bladder flap, excellent hemostasis was observed. The fascial incision was reapproximated using 0 Vicryl in a running stitch. The subcutaneous tissue was irrigated, and reapproximated using 2-0 plain gut in a running stitch in 2 layers. The skin was reapproximated using 4-0 Vicryl in a running subcuticular stitch. Steri-Strips and a bandage were applied. The patient tolerated the procedure well, and will be taken to the recovery area in stable and good condition. I attest to the content of the Intraoperative Record and any orders documented therein. Any exceptions are noted below. OB Procedure charges OB Charges 60179 C/S p Trial
[2021-06-30] MEDS: OXYTOCIN 30 UNITS in LACTATED RINGER'S 1,000 ML IV SCH (22:22)
--- NOTE | 2021-06-30 22:29 | Anesthesiology Progress Note ---
Date of Service June 30, 2021 Anesthesia Post Procedure Vital Signs Vital Signs: Temp Pulse Resp BP Pulse Ox 06/30/21 22:23 100 H 99 06/30/21 22:20 87 106/64 06/30/21 22:18 91 H 99 06/30/21 22:13 94 H 99 06/30/21 22:10 94 H 113/67 06/30/21 22:08 97 H 99 06/30/21 22:03 95 H 99 06/30/21 22:00 90 123/68 06/30/21 21:58 96 H 100 06/30/21 21:53 94 H 100 06/30/21 21:50 105 H 125/61 06/30/21 21:48 100 H 100 06/30/21 21:46 107 H 94 06/30/21 21:43 88 100 06/30/21 21:40 100 H 118/59 L 06/30/21 21:38 111 H 100 06/30/21 21:33 86 100 06/30/21 21:29 89 120/62 06/30/21 19:34 37.0 C 164 H 18 158/132 H 06/30/21 19:33 138 H 99 06/30/21 19:28 136 H 117/69 100 06/30/21 19:25 117 H 133/67 06/30/21 19:23 133 H 125/63 99 06/30/21 19:21 123 H 133/69 06/30/21 19:19 116 H 129/65 06/30/21 19:18 112 H 93 06/30/21 19:17 114 H 127/74 100 06/30/21 19:15 100 H 128/71 06/30/21 19:13 112 H 123/69 93 06/30/21 19:12 111 H 96 06/30/21 19:11 103 H 125/67 06/30/21 19:09 104 H 128/69 06/30/21 19:08 104 H 128/72 93 06/30/21 19:07 106 H 96 06/30/21 19:05 107 H 124/74 06/30/21 19:03 107 H 124/71 06/30/21 19:02 97 H 100 06/30/21 19:01 100 H 123/72 06/30/21 18:59 100 H 124/73 06/30/21 18:57 99 H 124/73 99 06/30/21 18:55 90 124/70 06/30/21 18:53 100 H 133/74 06/30/21 18:52 95 H 99 06/30/21 18:50 94 H 82 L 06/30/21 18:47 98 H 100 06/30/21 18:38 93 H 122/73 06/30/21 18:32 110 H 90 06/30/21 18:31 106 H 99 06/30/21 18:26 92 H 100 06/30/21 18:24 108 H 92 06/30/21 18:23 108 H 122/73 06/30/21 18:21 106 H 100 06/30/21 18:16 101 H 100 06/30/21 18:13 102 H 89 L 06/30/21 18:11 103 H 72 L 06/30/21 18:09 95 H 128/75 06/30/21 18:06 101 H 100 06/30/21 18:05 97 H 79 L 06/30/21 18:01 98 H 100 06/30/21 17:56 98 H 100 06/30/21 17:54 95 H 117/74 06/30/21 17:51 97 H 100 06/30/21 17:50 96 H 92 06/30/21 17:46 99 H 96 06/30/21 17:44 96 H 91 06/30/21 17:41 103 H 100 06/30/21 17:39 101 H 124/75 91 06/30/21 17:36 94 H 73 L 06/30/21 17:32 97 H 93 06/30/21 17:31 91 H 100 06/30/21 17:27 95 H 90 06/30/21 17:26 99 H 100 06/30/21 17:25 37.1 C 94 H 20 118/75 06/30/21 17:21 103 H 94 06/30/21 17:20 98 H 82 L 06/30/21 17:16 102 H 99 06/30/21 17:15 101 H 94 06/30/21 17:11 114 H 99 06/30/21 17:08 126 H 20 126/83 06/30/21 17:06 102 H 100 06/30/21 17:01 82 98 06/30/21 16:56 104 H 100 06/30/21 16:53 85 119/75 06/30/21 16:51 88 99 06/30/21 16:50 108 H 83 L 06/30/21 16:46 94 H 94 06/30/21 16:43 89 90 06/30/21 16:41 79 99 06/30/21 16:38 87 109/58 L 06/30/21 16:36 80 99 06/30/21 16:31 85 98 06/30/21 16:27 102 H 92 06/30/21 16:26 98 H 100 06/30/21 16:24 78 18 118/72 06/30/21 16:21 91 H 100 06/30/21 16:18 94 H 93 06/30/21 16:16 96 H 100 06/30/21 16:11 99 H 83 L 06/30/21 16:09 92 H 113/73 92 06/30/21 16:06 84 100 06/30/21 16:01 79 99 06/30/21 16:00 83 87 L 06/30/21 15:56 85 96 06/30/21 15:54 98 H 88 L 06/30/21 15:53 94 H 113/72 06/30/21 15:51 85 88 L 06/30/21 15:49 92 H 91 06/30/21 15:46 95 H 95 06/30/21 15:44 105 H 94 06/30/21 15:41 98 H 96 06/30/21 15:38 79 121/68 91 06/30/21 15:36 85 98 06/30/21 15:31 79 100 06/30/21 15:26 87 100 06/30/21 15:23 90 113/66 90 06/30/21 15:21 97 H 98 06/30/21 15:16 114 H 95 06/30/21 15:12 88 89 L 06/30/21 15:10 84 98 06/30/21 15:08 88 130/85 06/30/21 15:05 84 97 06/30/21 15:00 87 93 06/30/21 14:57 90 92 06/30/21 14:55 75 95 06/30/21 14:53 36.9 C 85 20 124/74 06/30/21 14:50 84 98 06/30/21 14:48 84 87 L 06/30/21 14:45 89 83 L 06/30/21 14:41 104 H 92 06/30/21 14:40 79 100 06/30/21 14:38 77 112/72 06/30/21 14:35 79 80 L 06/30/21 14:33 77 89 L 06/30/21 14:30 77 100 06/30/21 14:28 81 92 06/30/21 14:25 75 99 06/30/21 14:23 84 91 06/30/21 14:20 80 80 L 06/30/21 14:17 76 90 06/30/21 14:15 65 98 06/30/21 14:10 78 99 06/30/21 14:08 77 116/69 06/30/21 14:07 74 90 06/30/21 14:05 70 99 06/30/21 14:02 89 86 L 06/30/21 14:00 72 100 06/30/21 13:55 79 97 06/30/21 13:54 76 20 116/70 06/30/21 13:50 67 98 06/30/21 13:48 84 91 06/30/21 13:45 64 100 06/30/21 13:40 72 99 06/30/21 13:39 72 109/65 06/30/21 13:35 67 98 06/30/21 13:33 66 91 06/30/21 13:30 64 99 06/30/21 13:25 65 98 06/30/21 13:23 73 105/57 L 06/30/21 13:20 71 99 06/30/21 13:18 67 91 06/30/21 13:15 68 100 06/30/21 13:10 87 77 L 06/30/21 13:07 75 93 06/30/21 13:05 77 82 L 06/30/21 13:03 36.4 C L 20 06/30/21 13:00 92 H 92 06/30/21 12:55 70 106/64 94 06/30/21 12:50 70 70 L 06/30/21 12:49 71 92 06/30/21 12:45 73 96 06/30/21 12:42 69 92 06/30/21 12:40 65 91 06/30/21 12:38 72 102/69 06/30/21 12:36 78 93 06/30/21 12:35 70 100 06/30/21 12:30 67 100 06/30/21 12:27 66 93 06/30/21 12:25 68 99 06/30/21 12:23 62 114/76 06/30/21 12:20 69 100 06/30/21 12:15 78 83 L 06/30/21 12:14 64 87 L 06/30/21 12:10 66 110/69 100 06/30/21 12:07 64 92 06/30/21 12:05 64 99 06/30/21 12:02 70 94 06/30/21 12:00 65 100 06/30/21 11:56 62 90 06/30/21 11:55 59 L 100 06/30/21 11:53 68 20 105/71 06/30/21 11:50 66 100 06/30/21 11:48 60 92 06/30/21 11:45 62 100 06/30/21 11:40 71 82 L 06/30/21 11:39 70 118/84 06/30/21 11:35 63 100 06/30/21 11:34 60 93 06/30/21 11:30 65 100 06/30/21 11:25 61 100 06/30/21 11:23 61 108/70 06/30/21 11:20 61 100 06/30/21 11:15 59 L 99 06/30/21 11:10 64 100 06/30/21 11:09 99 H 119/78 06/30/21 11:08 78 90 06/30/21 11:05 62 100 06/30/21 11:01 83 90 06/30/21 11:00 74 99 06/30/21 10:55 36.7 C 58 L 18 110/67 99 06/30/21 10:50 59 L 100 06/30/21 10:45 59 L 100 06/30/21 10:40 63 99 06/30/21 10:38 63 118/73 06/30/21 10:36 67 93 06/30/21 10:35 67 100 06/30/21 10:30 62 100 06/30/21 10:25 57 L 100 06/30/21 10:24 60 108/67 06/30/21 10:20 57 L 99 06/30/21 10:15 61 100 09/10/21 10:10 65 99 06/30/21 10:09 58 L 97/60 L 06/30/21 10:05 62 99 06/30/21 10:00 65 99 06/30/21 09:55 78 20 87 L 06/30/21 09:54 75 105/65 91 06/30/21 09:50 82 100 06/30/21 09:46 61 94 06/30/21 09:45 61 95 06/30/21 09:40 81 94 06/30/21 09:39 67 110/74 06/30/21 09:38 64 91 06/30/21 09:35 75 100 06/30/21 09:31 69 93 06/30/21 09:30 65 97 06/30/21 09:25 65 94 06/30/21 09:23 75 118/75 06/30/21 09:20 64 97 06/30/21 09:17 69 94 06/30/21 09:15 68 100 06/30/21 09:10 67 91 06/30/21 09:09 71 136/76 06/30/21 09:05 62 100 06/30/21 09:00 63 100 06/30/21 08:55 61 100 06/30/21 08:53 60 110/73 06/30/21 08:51 36.8 C 20 06/30/21 08:50 57 L 100 06/30/21 08:48 75 91 06/30/21 08:45 61 98 06/30/21 08:40 76 100 06/30/21 08:38 67 109/74 06/30/21 08:35 63 99 06/30/21 08:30 90 96 06/30/21 08:25 82 99 06/30/21 08:24 76 107/66 06/30/21 08:20 64 100 06/30/21 08:15 90 100 06/30/21 08:14 98 H 90 06/30/21 08:10 76 99 06/30/21 08:09 88 103/66 06/30/21 08:05 63 100 06/30/21 08:00 82 100 06/30/21 07:56 76 91 06/30/21 07:55 76 96 06/30/21 07:53 98 H 20 90/57 L 06/30/21 07:50 55 L 99 06/30/21 07:45 68 100 06/30/21 07:40 58 L 98 06/30/21 07:38 69 85/54 L 06/30/21 07:35 58 L 100 06/30/21 07:30 62 100 06/30/21 07:27 67 90 06/30/21 07:25 68 104/57 L 98 06/30/21 07:21 65 91 06/30/21 07:20 64 97 06/30/21 07:15 91 H 99 06/30/21 07:12 72 93 06/30/21 07:10 55 L 100 06/30/21 07:09 60 102/65 06/30/21 07:08 61 103/69 06/30/21 07:05 71 100 06/30/21 07:04 71 90 06/30/21 07:02 36.8 C 20 06/30/21 07:00 57 L 100 06/30/21 06:55 55 L 113/71 100 06/30/21 06:50 59 L 100 06/30/21 06:45 57 L 100 06/30/21 06:40 58 L 100 06/30/21 06:39 62 108/66 06/30/21 06:35 56 L 98 06/30/21 06:30 60 100 06/30/21 06:25 54 L 100 06/30/21 06:23 61 18 109/68 06/30/21 06:20 59 L 100 06/30/21 06:15 65 100 06/30/21 06:10 57 L 100 06/30/21 06:08 61 100/60 06/30/21 06:07 78 91 06/30/21 06:05 70 100 06/30/21 06:00 61 90 06/30/21 05:57 63 94 06/30/21 05:55 66 100 06/30/21 05:54 69 116/77 06/30/21 05:52 75 92 06/30/21 05:50 56 L 99 06/30/21 05:45 59 L 99 06/30/21 05:40 60 107/70 100 06/30/21 05:34 60 98 06/30/21 05:29 58 L 99 06/30/21 05:24 60 99 06/30/21 05:23 55 L 107/69 06/30/21 05:19 61 98 06/30/21 05:14 55 L 99 06/30/21 05:09 36.8 C 78 18 100 06/30/21 05:08 54 L 105/72 06/30/21 05:04 54 L 100 06/30/21 04:59 56 L 100 06/30/21 04:54 61 127/81 100 06/30/21 04:49 85 78 L 06/30/21 04:44 72 100 06/30/21 04:39 71 100 06/30/21 04:38 68 98/59 L 91 06/30/21 04:34 61 100 06/30/21 04:31 16 06/30/21 04:29 60 100 06/30/21 04:24 66 100 06/30/21 04:23 80 97/58 L 06/30/21 04:19 62 100 06/30/21 04:14 60 100 06/30/21 04:09 60 100 06/30/21 04:08 94 H 97/56 L 06/30/21 04:04 61 100 06/30/21 03:59 62 100 06/30/21 03:54 67 100 06/30/21 03:53 63 102/55 L 06/30/21 03:49 61 100 06/30/21 03:45 16 06/30/21 03:44 66 100 06/30/21 03:39 67 96 06/30/21 03:37 78 100/50 L 06/30/21 03:34 71 100 06/30/21 03:30 71 99/56 L 06/30/21 03:29 69 104/57 L 100 06/30/21 03:28 75 92 06/30/21 03:26 75 99/59 L 06/30/21 03:25 36.8 C 18 06/30/21 03:24 73 93/52 L 96 06/30/21 03:22 62 100/57 L 06/30/21 03:20 18 06/30/21 03:19 63 106/50 L 100 06/30/21 03:18 68 91 06/30/21 03:16 71 122/66 06/30/21 03:15 16 06/30/21 03:14 75 100 06/30/21 03:11 77 87 L 06/30/21 03:09 90 100 06/30/21 03:04 68 60 L 06/30/21 02:59 68 100 06/30/21 02:58 70 88 L 06/30/21 02:54 58 L 100 06/30/21 02:33 36.9 C 97 H 18 112/75 06/30/21 01:00 74 121/75 06/30/21 00:58 36.8 C 18 06/30/21 00:01 68 16 124/87 06/29/21 23:00 36.8 C 18 06/29/21 22:52 66 113/68 Pain Intensity Lower Abdomen: Pain Intensity: 8 Transfer of Care Handoff Completed per policy Notes Mental Status: alert / awake / arousable and participated in evaluation Nausea / Vomiting: adequately controlled Pain: adequately controlled Airway Patency, RR, SpO2: stable & adequate BP & HR: stable & adequate Hydration State: stable & adequate Neuraxial Anesthesia: was administered and sensory block is resolving Anesthetic Complications: no major complications apparent and Pt Satisfied with anesthetic care
[2021-06-30 22:51] LABS: Base Excess Cord Venous Blood -3.9 mEq/L (-7.7-1.9); Cord Venous Blood HCO3 22 mmol/L (18.4-26.8); Cord Venous Blood PCO2 43 mmHg (30.4-57.2); Cord Venous Blood PO2 25 mmHg (14.1-43.3); Cord Venous Blood pH 7.33 (7.20-7.44); O2 Saturation Cord Venous Bld < 60.0 % (<68)
[2021-07-01] MEDS: KETOROLAC 30 MG/ML VIAL IV PRN ×2 (02:06→13:18)
--- NOTE | 2021-07-01 06:06 | Obstetrical Progress Note ---
Date of Service <Eduardo Blanca MD - Last Filed: 07/01/21 07:58> July 01, 2021 Assessment & Plan <Eduardo Blanca MD - Last Filed: 07/01/21 07:58> (1) Encounter for care and examination after delivery: 25 yo now POD1 from [facility] at 41wks after failed with Cat 3 FHR -Continue routine care, possibly d/c tomorrow -Vitals reviewed- HDS, afebrile -Blood type O+, GBS+, Rubella immune -Encourage ambulation, current limitation attributed to residual effects of spinal anesthesia -Advance diet as tolerated -Remove Gonsalves today -Pain control with ibuprofen, oxycodone PRN -Encourage , may see clinical program consultant if available today -Hgb 9.9 on admission, asymptomatic -F/u in 6 weeks with OB <Aishwarya White DO - Last Filed: 07/01/21 08:35> (1) Encounter for care and examination after delivery: Subjective <Eduardo Blanca MD - Last Filed: 07/01/21 07:58> Ambulation: limited ambulation Voiding: gonsalves catheter in place Passing Gas:: No (Pt says she may have passed gas while asleep but unsure) Diet Tolerance:: clear liquids Lochia:: Moderate Feeding Type:: breast feeding Current Pain Level(1-10): 5 Pt and baby doing well, no acute events or complaints. Has not passed BM yet. Pain well controlled with medication. Review of Systems Denies fevers/chills. Denies dyspnea, cough. Denies chest pain. Denies breast pain or discharge. Denies dysuria. Denies headache. Denies back pain. Physical Exam <Eduardo Blanca MD - Last Filed: 07/01/21 07:58> General: Alert, oriented, no acute distress Cardiac: Regular rate and rhythm, normal S1, S2. No murmurs appreciated. Respiratory: Clear to auscultation b/l with good air flow entry, symmetric chest rise and fall. No wheezes or crackles. No increased work of breathing or accessory muscle use Abdomen: Soft, nontender, nondistended. Fundus firm and palpable at 1 cm above umbilicus. Surgical incision clean and intact with some crusted blood and largely mild serous drainage. Bowel sounds appreciated. No guarding or rebound. Skin: No rashes or lesions Extremities: Warm, dry, well-perfused with capillary refill <2s b/l. No lower extremity edema, erythema or swelling. Negative Emma's sign b/l. Results & Data ([facility]) <Eduardo Blanca MD - Last Filed: 07/01/21 07:58> Vital Signs (Past 12 Hours) Vital Signs Temp Pulse Pulse Resp BP BP Pulse Ox 07/01/21 05:31 18 92 07/01/21 04:30 18 91 07/01/21 03:30 36.9 C 92 H 18 113/71 97 07/01/21 02:30 18 92 07/01/21 01:30 18 92 07/01/21 00:30 36.9 C 88 16 106/60 97 06/30/21 23:33 96 H 98 06/30/21 23:30 18 06/30/21 23:28 82 97 06/30/21 23:23 88 98 06/30/21 23:19 89 110/58 L 06/30/21 23:18 89 95 06/30/21 23:13 90 97 06/30/21 23:08 83 98 06/30/21 23:03 98 H 97 06/30/21 23:00 18 06/30/21 22:59 90 110/59 L 06/30/21 22:58 92 H 97 06/30/21 22:53 89 98 06/30/21 22:48 103 H 99 06/30/21 22:43 88 98 06/30/21 22:38 90 99 06/30/21 22:33 88 99 06/30/21 22:30 85 18 112/64 06/30/21 22:28 95 H 99 06/30/21 22:23 100 H 99 06/30/21 22:20 87 18 106/64 06/30/21 22:18 91 H 99 06/30/21 22:13 94 H 99 06/30/21 22:10 94 H 18 113/67 06/30/21 22:08 97 H 99 06/30/21 22:03 95 H 99 06/30/21 22:00 90 18 123/68 06/30/21 21:58 96 H 100 06/30/21 21:53 94 H 100 06/30/21 21:50 105 H 18 125/61 06/30/21 21:48 100 H 100 06/30/21 21:46 107 H 94 06/30/21 21:43 88 100 06/30/21 21:40 100 H 18 118/59 L 06/30/21 21:38 111 H 100 06/30/21 21:33 86 100 06/30/21 21:30 36.9 C 18 06/30/21 21:29 89 120/62 06/30/21 19:34 37.0 C 164 H 18 158/132 H 06/30/21 19:33 138 H 99 06/30/21 19:28 136 H 117/69 100 06/30/21 19:25 117 H 133/67 06/30/21 19:23 133 H 125/63 99 06/30/21 19:21 123 H 133/69 06/30/21 19:19 116 H 129/65 06/30/21 19:18 112 H 93 06/30/21 19:17 114 H 127/74 100 06/30/21 19:15 100 H 128/71 06/30/21 19:13 112 H 123/69 93 06/30/21 19:12 111 H 96 06/30/21 19:11 103 H 125/67 06/30/21 19:09 104 H 128/69 06/30/21 19:08 104 H 128/72 93 06/30/21 19:07 106 H 96 06/30/21 19:05 107 H 124/74 06/30/21 19:03 107 H 124/71 06/30/21 19:02 97 H 100 06/30/21 19:01 100 H 123/72 06/30/21 18:59 100 H 124/73 06/30/21 18:57 99 H 124/73 99 06/30/21 18:55 90 124/70 06/30/21 18:53 100 H 133/74 06/30/21 18:52 95 H 99 06/30/21 18:50 94 H 82 L 06/30/21 18:47 98 H 100 06/30/21 18:38 93 H 122/73 06/30/21 18:32 110 H 90 06/30/21 18:31 106 H 99 06/30/21 18:26 92 H 100 06/30/21 18:24 108 H 92 06/30/21 18:23 108 H 122/73 06/30/21 18:21 106 H 100 06/30/21 18:16 101 H 100 06/30/21 18:13 102 H 89 L 06/30/21 18:11 103 H 72 L 06/30/21 18:09 95 H 128/75 06/30/21 18:06 101 H 100 06/30/21 18:05 97 H 79 L Pulse Ox 07/01/21 05:31 07/01/21 04:30 07/01/21 03:30 07/01/21 02:30 07/01/21 01:30 07/01/21 00:30 92 06/30/21 23:33 06/30/21 23:30 06/30/21 23:28 06/30/21 23:23 06/30/21 23:19 06/30/21 23:18 06/30/21 23:13 06/30/21 23:08 06/30/21 23:03 06/30/21 23:00 06/30/21 22:59 06/30/21 22:58 06/30/21 22:53 06/30/21 22:48 06/30/21 22:43 06/30/21 22:38 06/30/21 22:33 06/30/21 22:30 06/30/21 22:28 06/30/21 22:23 06/30/21 22:20 06/30/21 22:18 06/30/21 22:13 06/30/21 22:10 06/30/21 22:08 06/30/21 22:03 06/30/21 22:00 06/30/21 21:58 06/30/21 21:53 06/30/21 21:50 06/30/21 21:48 06/30/21 21:46 06/30/21 21:43 06/30/21 21:40 06/30/21 21:38 06/30/21 21:33 06/30/21 21:30 06/30/21 21:29 06/30/21 19:34 06/30/21 19:33 06/30/21 19:28 06/30/21 19:25 06/30/21 19:23 06/30/21 19:21 06/30/21 19:19 06/30/21 19:18 06/30/21 19:17 06/30/21 19:15 06/30/21 19:13 06/30/21 19:12 06/30/21 19:11 06/30/21 19:09 06/30/21 19:08 06/30/21 19:07 06/30/21 19:05 06/30/21 19:03 06/30/21 19:02 06/30/21 19:01 06/30/21 18:59 06/30/21 18:57 06/30/21 18:55 06/30/21 18:53 06/30/21 18:52 06/30/21 18:50 06/30/21 18:47 06/30/21 18:38 06/30/21 18:32 06/30/21 18:31 06/30/21 18:26 06/30/21 18:24 06/30/21 18:23 06/30/21 18:21 06/30/21 18:16 06/30/21 18:13 06/30/21 18:11 06/30/21 18:09 06/30/21 18:06 06/30/21 18:05 <Aishwarya White DO - Last Filed: 07/01/21 08:35> Co-Signing Physician Notes Resident Physician Supervision Note: I was present with Dr. Lopez during the history and exam. I discussed the case with the resident and agree with the findings and plan as documented in the note. Any exceptions or clarifications are listed here: POD#1 doing well. Documented By: Aishwarya White DO Resident Activity Tracking <Eduardo Blanca MD - Last Filed: 07/01/21 07:58> Resident Involvement: Resident Care Provided Care Provided: OB Delivery
[2021-07-01] MEDS: OXYTOCIN 30 UNITS in LACTATED RINGER'S 1,000 ML IV SCH (06:07)
[2021-07-01 06:35] LABS: Basophils # (auto) 0.01 K/uL (0-0.2); Basophils % (auto) 0.1 %; Eosinophils # (auto) 0.01 K/uL (0-0.5); Eosinophils % (auto) 0.1 %; Hematocrit (blood only) 28.7 % (37-47); Hemoglobin 8.6 g/dL (12.0-16.0); Immature Granulocytes # (auto) 0.01 K/uL (0.00-0.02); Immature Granulocytes % (auto) 0.1 %; Lymphocytes # (auto) 1.95 K/uL (1.2-3.4); Lymphocytes % (auto) 18.2 %; Mean Corpuscular Hemoglobin 23.2 pg (25-34); Mean Corpuscular Volume 77.4 fL (80-100); Mean Platelet Volume 11.6 fL (7.4-10.4); Monocytes % (auto) 10.3 %; Neutrophils # (auto) 7.63 K/uL (1.4-6.5); Neutrophils % (auto) 71.2 %; Platelet Count 151 K/uL (130-400); RDW Standard Deviation 45.4 fL (36.4-46.3); Red Blood Count 3.71 M/uL (4.2-5.4); White Blood Count 10.71 K/uL (4.8-10.8)
[2021-07-01] MEDS: SIMETHICONE 80 MG CHEW PO SCH ×4 (08:18→20:52)
[2021-07-01] MEDS: DOCUSATE SODIUM 100 MG CAP PO SCH ×2 (08:18→20:52)
[2021-07-01] MEDS: PRENATAL VITAMIN 1 TAB PO SCH (08:18)
[2021-07-01] MEDS: FERROUS SULFATE 325 MG TAB PO SCH (08:18)
[2021-07-01] MEDS ORDERED: diphenhydrAMINE 50 MG/ML VIAL IV PRN (14:31)
[2021-07-01] MEDS ORDERED: ONDANSETRON INJ 2 MG/ML 2 ML VIAL IV PRN (14:31)
[2021-07-01] MEDS ORDERED: DC INTRASPINAL MORPHINE ONE (14:31)
[2021-07-01] MEDS ORDERED: diphenhydrAMINE Capsule 25 MG CAP PO PRN (14:31)
[2021-07-01] MEDS ORDERED: KETOROLAC 30 MG/ML VIAL IV PRN (14:31)
[2021-07-01] MEDS ORDERED: PROMETHAZINE HCL 25 MG in SODIUM CHLORIDE 0.9% 50 ML IV PRN (14:31)
[2021-07-01] MEDS: oxyCODONE/ACETAMINOPHEN 5mg/325mg TAB PO PRN (18:33)
[2021-07-01] MEDS: IBUPROFEN 600 MG TAB PO PRN (18:34)
[2021-07-01] MEDS ORDERED: bisacodyL 5 MG TABEC PO SCH (20:00)
[2021-07-02] MEDS: oxyCODONE/ACETAMINOPHEN 5mg/325mg TAB PO PRN ×5 (00:35→22:26)
[2021-07-02] MEDS: IBUPROFEN 600 MG TAB PO PRN ×5 (00:35→22:26)
[2021-07-02 06:41] LABS: Hematocrit (blood only) 26.8 % (37-47); Hemoglobin 8.1 g/dL (12.0-16.0)
--- NOTE | 2021-07-02 09:09 | Obstetrical Progress Note ---
Date of Service July 02, 2021 Assessment & Plan (1) Encounter for care and examination after delivery: 25yo Day 2 s/p rLTCS. Doing well. Stable for discharge if desired Subjective Ambulation: ambulating normally Voiding: no voiding problems Passing Gas:: Yes Diet Tolerance:: regular diet Lochia:: Moderate Feeding Type:: breast feeding Physical Exam Constitutional WD/WN, vitals as above Respiratory normal respiratory effort; no respiratory distress and no labored breathing Gastrointestinal (Abdomen) Inspection/Auscultation: abdomen normal to inspection; abdomen not distended Percussion/Palpation: abdomen soft; abdomen nontender, no guarding and abdomen not rigid Incision C/D/I Genitourinary OB Exam Abdomen: + fundal height Fundus: + firm and + relation to umbilicus (Below); not tender or not boggy Results & Data ([facility]) Vital Signs (Past 12 Hours) Vital Signs Temp Pulse Resp BP 07/01/21 23:10 36.8 C 72 18 116/67
[2021-07-02] MEDS: DOCUSATE SODIUM 100 MG CAP PO SCH ×2 (09:37→20:45)
[2021-07-02] MEDS: PRENATAL VITAMIN 1 TAB PO SCH (09:37)
[2021-07-02] MEDS: SIMETHICONE 80 MG CHEW PO SCH ×4 (09:38→20:45)
[2021-07-02] MEDS: FERROUS SULFATE 325 MG TAB PO SCH (09:38)
[2021-07-02] MEDS ORDERED: bisacodyL 10 MG SUPP PR PRN (21:52)
[2021-07-03] MEDS: oxyCODONE/ACETAMINOPHEN 5mg/325mg TAB PO PRN ×3 (06:03→14:22)
[2021-07-03] MEDS: IBUPROFEN 600 MG TAB PO PRN ×3 (06:04→14:23)
--- NOTE | 2021-07-03 07:31 | Obstetrical Progress Note ---
Date of Service July 03, 2021 Assessment & Plan (1) Encounter for care and examination after delivery: 25yo S/p rLTCS. Doing well. Stable for discharge Subjective Ambulation: ambulating normally Voiding: no voiding problems Passing Gas:: Yes Diet Tolerance:: regular diet Lochia:: Moderate Feeding Type:: breast feeding Physical Exam Constitutional WD/WN, vitals as above Respiratory normal respiratory effort; no respiratory distress and no labored breathing Gastrointestinal (Abdomen) Inspection/Auscultation: abdomen normal to inspection; abdomen not distended Percussion/Palpation: abdomen soft; abdomen nontender, no guarding and abdomen not rigid Incision C/D/I Genitourinary OB Exam Abdomen: + fundal height Fundus: + firm and + relation to umbilicus (Below); not tender or not boggy Results & Data ([facility]) Vital Signs (Past 12 Hours) Vital Signs Temp Pulse Resp BP Pulse Ox 07/02/21 23:05 36.7 C 78 16 111/69 98 07/02/21 19:30 36.6 C 71 18 99/67 L 100
[2021-07-03] MEDS: FERROUS SULFATE 325 MG TAB PO SCH (07:50)
[2021-07-03] MEDS: SIMETHICONE 80 MG CHEW PO SCH ×2 (07:50→13:12)
[2021-07-03] MEDS: PRENATAL VITAMIN 1 TAB PO SCH (07:50)
[2021-07-03] MEDS: DOCUSATE SODIUM 100 MG CAP PO SCH (07:50)
--- NOTE | 2021-07-05 22:33 | Discharge Summary ---
Date of Service July 05, 2021 Admission HPI Per Admitting Provider Jeffery Is a 25-year-old currently at 40 weeks 6 days gestational age presents with spontaneous rupture of membranes. Patient reports spontaneous rupture membranes at 3:00 p.m. today. She reports that contractions have been increasing in intensity and frequency since onset of rupture. Denies any vaginal bleeding. Reports good movement. Of note patient has a history of 1 prior Caesarean section performed secondary to intolerance of labor. Patient has been extensively counseled on trial of labor after section versus repeat section. risks of a trial of labor / have been extensively reviewed including the risk of catastrophic injury to both baby and mother In the event of a uterine rupture. Discussed the risk at baseline is approximately 1% and increases due to additional independent risk factors including augmentation / induction. consents have been reviewed and signed. otherwise complicated by GBS positive. Discharge Data Consultations 06/29/21 16:46 Consult Anesthesiology Stat Procedures Performed Operation Date: 06/30/21 09:10 <No data on this case meets the specified criteria> Operation Date: 06/30/21 16:55 Actual Procedures p Section in - Aishwarya White DO Hospital Course (1) : Presented in labor, requested TOLAC, this was not successful, repeat performed, routine postop course, DC home POD#3. Please see documentation from visit for further details of above. Coding Level of Care Code None Diagnoses Z34.90
== END 2021-07-03 14:45 | disposition home or self-care (01) | DRG 788 ==
LOC: 4S1 16:09 → EDSTATUS 06-30 07:30 → 4S2 07-01 00:21